=== PATIENT | male | born 1930 | race Caucasian/White ===

== ENCOUNTER 2017-02-03 13:56 | Inpatient (IN) | payer OTHER, MEDICARE ==
[~2017-02-03] VITALS: Ht 172.7 cm; Wt 78.9 kg
[~2017-02-03 13:56] MED LIST: ASPI81 PO; CALC.25 PO; LANSO30 PO; METO25 PO; NEOSTIGMINE 3 MG/3 ML SYR IV ONE; ONDANSETRON HCL 4 MG/2 ML VIAL IV PUSH ONE; PHEN100 PO; PHENYLEPH/NS 1000 MCG/10 ML SYR IV ONE; PROPOFOL 200 MG/20 ML AMP IV ONE; SODIUM CHLOR 0.9% 1000 ML INJ 1,000 ML IV ONE; SODIUM CHLOR 0.9% 250 ML INJ 500 ML IV ONE; SODIUM CHLORID 0.9% 500 ML INJ 500 ML IV ONE; [UNRECOGNIZED DRUG - CODE] PO
[2017-02-03 14:06] VITALS: BP 120/83; PULSE 77; RESP 20; TEMP 97.6; O2SAT 100
[2017-02-03] MEDS ORDERED: SODIUM CHLOR 0.9% 1000 ML INJ 1,000 ML IV SCH (14:12)
[2017-02-03 14:15] VITALS: O2SAT 96
[2017-02-03] MEDS ORDERED: MORPHINE SULFATE 4 MG/ML INJ IV PUSH ONE ×4 (14:15→23:12)
[2017-02-03] MEDS ORDERED: ONDANSETRON HCL 4 MG/2 ML VIAL IV PUSH ONE ×2 (14:15→15:00)
[2017-02-03 14:16] VITALS: BP 120/83; PULSE 88; RESP 18; TEMP 97.9; O2SAT 97
[2017-02-03] MEDS ORDERED: SODI650T PO (14:19)
[2017-02-03] MEDS ORDERED: CALC1CAP PO (14:19)
[2017-02-03] MEDS ORDERED: FURO40TA PO (14:19)
[2017-02-03] MEDS ORDERED: AMLO10TA2 PO (14:19)
[2017-02-03] MEDS ORDERED: OMEP20TA PO (14:19)
[2017-02-03] MEDS ORDERED: CALC0.5C6 PO (14:19)
--- NOTE | 2017-02-03 14:20 | PD ---
Data Data Last Documented VS Vital Signs Date Time Temp Pulse Resp B/P Pulse Ox O2 Delivery O2 Flow Rate FiO2 02/03/17 18:17 96 Nasal Cannula 3.00 02/03/17 15:02 18 02/03/17 14:16 97.9 88 120/83 Orders Complete Blood Count With Diff (02/03/17 14:09) Comprehensive Metabolic Panel (02/03/17 14:09) Prothrombin Time / Inr (Pt) (02/03/17 14:09) Act Partial Throm Time (Ptt) (02/03/17 14:09) Lipase (02/03/17 14:09) Thyroid Stimulating Hormone (02/03/17 14:09) Iv Access Insert/Monitor (02/03/17 14:09) Ecg Monitoring (02/03/17 14:09) Oximetry (02/03/17 14:09) Morphine Inj (Morphine Inj) (02/03/17 14:15) Ondansetron Inj (Zofran Inj) (02/03/17 14:15) Sodium Chlor 0.9% 1000 Ml Inj (Ns 1000 M (02/03/17 14:12) Abdomen, Kub Only (02/03/17 ) Morphine Inj (Morphine Inj) (02/03/17 14:45) Ondansetron Inj (Zofran Inj) (02/03/17 15:00) Lactic Acid (02/03/17 15:08) Ct Abd/Pel W/O Iv Contrast (02/03/17 ) Resp Blood Gas Venous (02/03/17 ) Hydromorphone Pf Inj (Dilaudid Pf Inj) (02/03/17 16:00) Blood Gas Venous (Vbg) (02/03/17 15:47) Insert Ng Tube (02/03/17 16:59) Propofol 200 Mg/20 Ml Inj (Diprivan 200 (02/03/17 17:45) Clindamycin Inj (Cleocin Inj) (02/03/17 18:15) Consult General Surgery (02/03/17 ) Admit Order (Ed Use Only) (02/03/17 ) Consult Nephrology (02/03/17 ) Labs Laboratory Tests Test 02/03/17 02/03/17 02/03/17 14:22 15:47 15:50 White Blood Count 5.5 TH/MM3 Red Blood Count 3.08 MIL/MM3 Hemoglobin 9.6 GM/DL Hematocrit 29.5 % Mean Corpuscular Volume 95.5 FL Mean Corpuscular Hemoglobin 31.1 PG Mean Corpuscular Hemoglobin 32.6 % Concent Red Cell Distribution Width 14.8 % Platelet Count 115 TH/MM3 Mean Platelet Volume 9.6 FL Neutrophils (%) (Auto) 91.4 % Lymphocytes (%) (Auto) 5.1 % Monocytes (%) (Auto) 2.7 % Eosinophils (%) (Auto) 0.3 % Basophils (%) (Auto) 0.5 % Neutrophils # (Auto) 5.1 TH/MM3 Lymphocytes # (Auto) 0.3 TH/MM3 Monocytes # (Auto) 0.2 TH/MM3 Eosinophils # (Auto) 0.0 TH/MM3 Basophils # (Auto) 0.0 TH/MM3 CBC Comment DIFF FINAL Differential Comment Prothrombin Time 11.3 SEC Prothromb Time International 1.0 RATIO Ratio Activated Partial 27.2 SEC Thromboplast Time Sodium Level 147 MEQ/L Potassium Level 3.9 MEQ/L Chloride Level 119 MEQ/L Carbon Dioxide Level 10.2 MEQ/L Anion Gap 18 MEQ/L Blood Urea Nitrogen 85 MG/DL Creatinine 7.51 MG/DL Estimat Glomerular Filtration 7 ML/MIN Rate Random Glucose 138 MG/DL Calcium Level 8.1 MG/DL Total Bilirubin 0.3 MG/DL Aspartate Amino Transf 22 U/L (AST/SGOT) Alanine Aminotransferase 21 U/L (ALT/SGPT) Alkaline Phosphatase 60 U/L Total Protein 7.0 GM/DL Albumin 3.5 GM/DL Lipase 319 U/L Thyroid Stimulating Hormone 2.250 uIU/ML 3rd Gen Blood Gas Puncture Site IV Blood Gas Patient Temperature 98.6 Venous Blood pH 7.17 Venous Blood Partial Pressure 29 mmHg CO2 Venous Blood Partial Pressure 40 mmHg O2 Venous Blood HCO3 10 mmol/L Venous Blood Oxygen Saturation 70 % Venous Blood Oxygen Content 8.9 Vol % Venous Blood Base Excess -16.9 mmol/L Oxygen Delivery Device ROOM AIR Blood Gas Inspired Oxygen 21 % Lactic Acid Level 1.5 mmol/L [facility] Supervised Visit with VU: Yes Narrative Course Patient seen and examined by me, I attempted to reduce his left-sided abdominal hernia without success. The patient's hernia is fairly tender but has no overlying skin changes. Patient to CAT scan does have signs of obstruction and does need to have the hernia reduced. I discussed the patient with Dr. Sprague who would like to have the patient sedated emergency department, Dr. Santamaria is available and has sedated the patient with Dr. Sprague trying to reduce and the patient has had unsuccessful reduction. The patient is fairly complicated for surgery given his chronic kidney disease, uremia, acidosis but after discussion with him that he may become quite ill if he does not do the surgery he has agreed to proceed with the surgery. Discussed with the patient that his DNR status will likely have to be listed for the procedure and he would agree to this as well. All this was conveyed to Dr. Sprague. Patient was also discussed with Dr. Zurita likely need an ICU bed after surgery. Patient hemodynamically stable is still having significant pain after the sedation was given additional morphine. He does not want to have any workup for his chronic kidney disease and what appears to be a mass on the left kidney. His right kidney on a CAT scan is severely atrophic: Last 24 hours Impressions Abdomen/Pelvis CT 02/03/17 0000 Signed Impressions: Service Date/Time: Wednesday, February 03, 2017 16:21 - CONCLUSION: 1. Left anterior abdominal wall hernia with findings concerning for strangulated proximal loop of jejunum. No evidence for bowel infarction, perforation, or abscess. 2. Large recannulated periumbilical vein with extensive network of enlarged veins abutting the abdominal wall likely extending to the splenic or left renal vein - notable for surgical planning. This is consistent with some degree of portal hypertension although there is not significant hepatic volume loss to suggest cirrhosis. 3. Innumerable bilateral renal cysts. Multiple have enlarged slightly since 2013 with one cystic lesion in the right kidney now more hyperdense like reflecting a hemorrhagic cyst although density is indeterminate at this time. A large left renal mass previously biopsied in 2013 has also enlarged in the interval, as above. Correlation with pathology results is recommended. 4. Serpiginous left lower lobe opacity suggesting pulmonary AVM. This can be confirmed with contrast-enhanced examination. 5. Moderately distended bladder may reflect some degree of bladder outlet obstruction. This may be confirmed with a postvoid residual exam. 6. 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 7. Multiple additional ancillary findings, as above. This report was called to Mr. Quirino, PARoberto Toledo MD Abdomen X-Ray 02/03/17 0000 Signed Impressions: Service Date/Time: Friday, February 03, 2017 14:34 - CONCLUSION: 1. Stool scattered throughout the colon. 2. Minimal small bowel dilatation in a nonspecific fashion. Blayne Roberson MD FACR Critical Care Narrative Aggregate critical care time was 31 minutes. Time to perform other separately billable procedures was not included in the critical care time. My time did not include minutes spent treating any other patients simultaneously or on activities that did not directly contribute to the patient's treatment. The services I provided to this patient were to treat and/or prevent clinically significant deterioration that could result in: , disability, organ failure. I provided critical care services requiring my management, as noted below: Chart data review, documentation time, medication orders and management, vital sign assessments/reviewing monitor data, ordering and reviewing lab tests, ordering and interpreting/reviewing x-rays and diagnostic studies, care of the patient and discussion of the patient with the admitting physicians and consultants as well as discussing at length the clinical impression with the family and the patient.. Diagnosis Primary Impression: Incarcerated hernia of abdominal cavity Additional Impressions: Metabolic acidemia Renal failure Qualified Code: N18.5 - Stage 5 chronic kidney disease not on chronic dialysis Incarcerated incisional hernia Acidosis ESRD (end stage renal disease) Admitting Information Admitting Physician Requests: Admit Condition: Serious Alfredito rAias MD Feb 03, 2017 14:20
[2017-02-03 14:34] LABS: AUTOMATED NEUTROPHIL # 5.1 TH/MM3 (1.8-7.7); BASOPHIL % 0.5 % (0.0-2.0); EOSINOPHIL % 0.3 % (0.0-4.0); HEMATOCRIT 29.5 % (39.0-51.0); HEMO FLAGS DIFF FINAL; LYMPH % 5.1 % (9.0-44.0); LYMPHOCYTE # 0.3 TH/MM3 (1.0-4.8); MEAN CELL VOLUME 95.5 FL (80.0-100.0); MEAN CORPUSCULAR HEMOGLOBIN 31.1 PG (27.0-34.0); MEAN CORPUSCULAR HGB CONC 32.6 % (32.0-36.0); MONO % 2.7 % (0.0-8.0); NEUT % 91.4 % (16.0-70.0); PLATELET COUNT 115 TH/MM3 (150-450); RED BLOOD COUNT 3.08 MIL/MM3 (4.50-5.90); RED CELL DISTRIBUTION WIDTH 14.8 % (11.6-17.2); WHITE BLOOD COUNT 5.5 TH/MM3 (4.0-11.0)
[2017-02-03 14:45] LABS: APTT (PATIENT) 27.2 SEC (24.3-30.1); PROTHROMBIN TIME - PATIENT 11.3 SEC (9.8-11.6)
[2017-02-03 14:57] LABS: ALT (GPT) 21 U/L (12-78); ANION GAP 18 MEQ/L (5-15); AST (GOT) 22 U/L (15-37); BICARBONATE 10.2 MEQ/L (21.0-32.0); BLOOD UREA NITROGEN 85 MG/DL (7-18); CHLORIDE 119 MEQ/L (98-107); GLOMERULAR FILTRATION RATE 7 ML/MIN (>89); POTASSIUM 3.9 MEQ/L (3.5-5.1); SODIUM (NA) 147 MEQ/L (136-145)
[2017-02-03 15:06] LABS: ALKALINE PHOSPHATASE 60 U/L (45-117); TOTAL BILIRUBIN ADULT 0.3 MG/DL (0.2-1.0)
--- NOTE | 2017-02-03 15:28 | RADRPT ---
EXAM DATE/TIME: 02/03/2017 14:34 [facility] COMPARISON: No previous studies available for comparison. INDICATIONS : Abdominal pain MEDICAL HISTORY : Gastroesophageal reflux disease. Hypertension Myocardial infarction. Brennan ry artery disease. Emphysema. Renal failure. SURGICAL HISTORY : Cholecystectomy. CABG. Cardiac cath. ENCOUNTER: Initial ACUITY: 1 day PAIN SCORE: 8/10 LOCATION: Bilateral lower abdomen. FINDINGS: Coarse interstitial changes are present in both lungs. Scattered stool is seen througho ut the colon. There is minimal proximal small bowel dilatation with small bowel dilated to 4 cm. There is no free air. CONCLUSION: 1. Stool scattered throughout the colon. 2. Minimal small bowel dilatation in a nonspecific fashion. Blayne Roberson MD FACR on February 03, 2017 at 15:16 Board Certified Radiologist. This report was verified electronically.
--- NOTE | 2017-02-03 15:33 | PD ---
HPI Chief Complaint: Abdominal Pain Time Seen by Provider: 15:30 Travel History International Travel<30 days: No Contact w/Intl Traveler<30days: No Traveled to known affect area: No History of Present Illness HPI 86-year-old male that presents to the ED for evaluation of severe abdominal pain. Per patient has had this since this morning. Per patient he was sitting when the pain started. Patient has a complicated history including apparently what appears to be kidney failure which appears to be chronic and follows up regularly with Dr. Victoria. Apparently he is supposed to have dialysis but he's been refusing for about 4 years now. He also has a history of a hernia on the left lower quadrant. Per patient most of the pain appears to be in this area. Patient is very sensitive to touch. Per patient pain severe 8 out of 10. He has no bowel movement issues. Has not had a bowel movement today. Has not vomited or had any nausea. Patient was brought here by ambulance. Patient has any fevers chills or sweats. No recent surgery to the abdomen. Allergies to penicillin. No chest pain or shortness of breath. Patient denies taking any blood thinners. PFSH Past Medical History Arthritis: No Asthma: No Autoimmune Disease: No Cancer: No Cardiac Catheterization: Yes Cardiovascular Problems: Yes (CAD S/P SD) High Cholesterol: No (UNKNOWN) Chest Pain: No Congestive Heart Failure: No COPD: No Cerebrovascular Accident: No Coronary Artery Disease: Yes Diabetes: No Diminished Hearing: No Endocrine: No GERD: Yes Genitourinary: Yes Hepatitis: No Hiatal Hernia: No Immune Disorder: No Kidney Stones: No Musculoskeletal: No Neurologic: Yes (SEIZURES) Psychiatric: No Reproductive: No Respiratory: Yes Migraines: No Myocardial Infarction: Yes Renal Failure: Yes (LEFT KIDNEY) Seizures: No Sleep Apnea: No Thyroid Disease: No Ulcer: No Tetanus Vaccination: Unknown Influenza Vaccination: Yes ?: Not Past Surgical History Abdominal Surgery: Yes (CHOLECYSTECOMTY, HERNIA) AICD: No Cardiac Surgery: Yes (CABG in 2003) Coronary Artery Bypass Graft: Yes (2003) Ear Surgery: No Endocrine Surgery: No Eye Surgery: No Genitourinary Surgery: Yes (LEFT KIDNEY) Gynecologic Surgery: No Joint Replacement: No Oral Surgery: Yes (TONSILLECTOMY) Pacemaker: No Thoracic Surgery: No Other Surgery: Yes (left kidney surgery..kidney inactive since then..over 50 years ago) Social History Alcohol Use: No Tobacco Use: No Substance Use: No Allergies-Medications (Allergen,Severity, Reaction): Coded Allergies: Penicillin (Verified Allergy, Severe, RASH, 10/28/12) Reported Meds & Prescriptions Reported Meds & Active Scripts Active Reported Calcitriol 0.5 Mcg Cap 0.5 Mcg PO DAILY Omeprazole 20 Mg Tab 20 Mg PO DAILY Amlodipine (Amlodipine Besylate) 10 Mg Tab 10 Mg PO DAILY Furosemide 40 Mg Tab 40 Mg PO DAILY Sodium Bicarbonate 650 Mg Tab 650 Mg PO TIDPC Calcium Acetate (Phosphate Binder) 667 Mg Cap 667 Mg PO TID Review of Systems Except as stated in HPI: all other systems reviewed are Neg Physical Exam Narrative GENERAL: SKIN: Warm and dry. HEAD: Atraumatic. Normocephalic. EYES: Pupils equal and round. No scleral icterus. No injection or drainage. ENT: No nasal bleeding or discharge. Mucous membranes pink and moist. Tongue is midline. No uvula deviation. NECK: Trachea midline. No JVD. CARDIOVASCULAR: Regular rate and rhythm. No murmurs, S3, S4. RESPIRATORY: No accessory muscle use. Clear to auscultation. Breath sounds equal bilaterally. GASTROINTESTINAL: Abdomen soft, very tender to palpation the left lower quadrant of her patient has what appears to be a hernia that is not reducible, very sensitive to touch here, nondistended. Hepatic and splenic margins not palpable. MUSCULOSKELETAL: Extremities without clubbing, cyanosis, or edema. No obvious deformities. Full range of motion of the upper and lower extremities bilaterally. 2+ pulses bilaterally. NEUROLOGICAL: Awake and alert. No obvious cranial nerve deficits. Motor grossly within normal limits. Five out of 5 muscle strength in the arms and legs. Normal speech. PSYCHIATRIC: Appropriate mood and affect; insight and judgment normal. Data Data Last Documented VS Vital Signs Date Time Temp Pulse Resp B/P Pulse Ox O2 Delivery O2 Flow Rate FiO2 02/03/17 18:17 96 Nasal Cannula 3.00 02/03/17 15:02 18 02/03/17 14:16 97.9 88 120/83 Orders Complete Blood Count With Diff (02/03/17 14:09) Comprehensive Metabolic Panel (02/03/17 14:09) Prothrombin Time / Inr (Pt) (02/03/17 14:09) Act Partial Throm Time (Ptt) (02/03/17 14:09) Lipase (02/03/17 14:09) Urinalysis - C+S If Indicated (02/03/17 14:09) Thyroid Stimulating Hormone (02/03/17 14:09) Iv Access Insert/Monitor (02/03/17 14:09) Ecg Monitoring (02/03/17 14:09) Oximetry (02/03/17 14:09) Morphine Inj (Morphine Inj) (02/03/17 14:15) Ondansetron Inj (Zofran Inj) (02/03/17 14:15) Sodium Chlor 0.9% 1000 Ml Inj (Ns 1000 M (02/03/17 14:12) Abdomen, Kub Only (02/03/17 ) Morphine Inj (Morphine Inj) (02/03/17 14:45) Ondansetron Inj (Zofran Inj) (02/03/17 15:00) Lactic Acid (02/03/17 15:08) Ct Abd/Pel W/O Iv Contrast (02/03/17 ) Resp Blood Gas Venous (02/03/17 ) Hydromorphone Pf Inj (Dilaudid Pf Inj) (02/03/17 16:00) Blood Gas Venous (Vbg) (02/03/17 15:47) Insert Ng Tube (02/03/17 16:59) Propofol 200 Mg/20 Ml Inj (Diprivan 200 (02/03/17 17:45) Clindamycin Inj (Cleocin Inj) (02/03/17 18:15) Consult General Surgery (02/03/17 ) Admit Order (Ed Use Only) (02/03/17 ) Labs Laboratory Tests Test 02/03/17 02/03/17 02/03/17 14:22 15:47 15:50 White Blood Count 5.5 TH/MM3 Red Blood Count 3.08 MIL/MM3 Hemoglobin 9.6 GM/DL Hematocrit 29.5 % Mean Corpuscular Volume 95.5 FL Mean Corpuscular Hemoglobin 31.1 PG Mean Corpuscular Hemoglobin 32.6 % Concent Red Cell Distribution Width 14.8 % Platelet Count 115 TH/MM3 Mean Platelet Volume 9.6 FL Neutrophils (%) (Auto) 91.4 % Lymphocytes (%) (Auto) 5.1 % Monocytes (%) (Auto) 2.7 % Eosinophils (%) (Auto) 0.3 % Basophils (%) (Auto) 0.5 % Neutrophils # (Auto) 5.1 TH/MM3 Lymphocytes # (Auto) 0.3 TH/MM3 Monocytes # (Auto) 0.2 TH/MM3 Eosinophils # (Auto) 0.0 TH/MM3 Basophils # (Auto) 0.0 TH/MM3 CBC Comment DIFF FINAL Differential Comment Prothrombin Time 11.3 SEC Prothromb Time International 1.0 RATIO Ratio Activated Partial 27.2 SEC Thromboplast Time Sodium Level 147 MEQ/L Potassium Level 3.9 MEQ/L Chloride Level 119 MEQ/L Carbon Dioxide Level 10.2 MEQ/L Anion Gap 18 MEQ/L Blood Urea Nitrogen 85 MG/DL Creatinine 7.51 MG/DL Estimat Glomerular Filtration 7 ML/MIN Rate Random Glucose 138 MG/DL Calcium Level 8.1 MG/DL Total Bilirubin 0.3 MG/DL Aspartate Amino Transf 22 U/L (AST/SGOT) Alanine Aminotransferase 21 U/L (ALT/SGPT) Alkaline Phosphatase 60 U/L Total Protein 7.0 GM/DL Albumin 3.5 GM/DL Lipase 319 U/L Thyroid Stimulating Hormone 2.250 uIU/ML 3rd Gen Blood Gas Puncture Site IV Blood Gas Patient Temperature 98.6 Venous Blood pH 7.17 Venous Blood Partial Pressure 29 mmHg CO2 Venous Blood Partial Pressure 40 mmHg O2 Venous Blood HCO3 10 mmol/L Venous Blood Oxygen Saturation 70 % Venous Blood Oxygen Content 8.9 Vol % Venous Blood Base Excess -16.9 mmol/L Oxygen Delivery Device ROOM AIR Blood Gas Inspired Oxygen 21 % Lactic Acid Level 1.5 mmol/L [facility] Medical Decision Making Medical Screen Exam Complete: Yes Emergency Medical Condition: Yes Medical Record Reviewed: Yes Interpretation(s) CBC & BMP Diagram 02/03/17 14:22 Last Impressions Abdomen/Pelvis CT 02/03/17 0000 Signed Impressions: Service Date/Time: Friday, February 03, 2017 16:21 - CONCLUSION: 1. Left anterior abdominal wall hernia with findings concerning for strangulated proximal loop of jejunum. No evidence for bowel infarction, perforation, or abscess. 2. Large recannulated periumbilical vein with extensive network of enlarged veins abutting the abdominal wall likely extending to the splenic or left renal vein - notable for surgical planning. This is consistent with some degree of portal hypertension although there is not significant hepatic volume loss to suggest cirrhosis. 3. Innumerable bilateral renal cysts. Multiple have enlarged slightly since 2013 with one cystic lesion in the right kidney now more hyperdense like reflecting a hemorrhagic cyst although density is indeterminate at this time. A large left renal mass previously biopsied in 2013 has also enlarged in the interval, as above. Correlation with pathology results is recommended. 4. Serpiginous left lower lobe opacity suggesting pulmonary AVM. This can be confirmed with contrast-enhanced examination. 5. Moderately distended bladder may reflect some degree of bladder outlet obstruction. This may be confirmed with a postvoid residual exam. 6. 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 7. Multiple additional ancillary findings, as above. This report was called to Mr. Quirino PA-C. Clarence Toledo MD Abdomen X-Ray 02/03/17 0000 Signed Impressions: Service Date/Time: Wednesday, February 03, 2017 14:34 - CONCLUSION: 1. Stool scattered throughout the colon. 2. Minimal small bowel dilatation in a nonspecific fashion. Blayne Roberson MD FACR LFTs and lipase within normal limits. Lactic acid within normal limits. Differential Diagnosis Abdominal pain versus obstruction versus strangulated hernia versus hernia versus diverticulitis versus kidney failure versus sepsis Narrative Course 86-year-old male to presents to the ED for ablation of left lower quadrant abdominal pain. Patient was properly examined and was found to have signs and symptoms concerning for strep and a hernia versus obstruction. Labs and imaging ordered. Pain medially had my attending evaluated the patient with me and we both attempted to reduce the hernia but were unsuccessful. Patient is very tender in this area and there is definite concern for strangulation as well as obstruction. Patient was given IV pain medication as well as antiemetics. Labs and imaging showed what appears to be angulated hernia and severe renal disease. Patient is also acidotic likely from the anemia. Dr. Sprague was contacted and came to the bedside and after explained procedure to the patient as well as to the family and they agreed to it using conscious sedation Dr. Sprague himself attempted for about 5 minutes to do a manual reduction of the hernia with no success. Please refer to my attending's note for this procedure. Therefore the plan change to having surgery. I spoke with Dr. victoria about the patient as this is the patient's statistical financial analyst and apparently patient has declined multiple times to have dialysis or any surgeries to his masses to his kidneys. He is awake the patient will be admitted to the equipment superintendent addiction specialist, evaluated the patient here. My attending and I personally spoke with Dr. Zurita for equipment superintendent who agrees to admission. Patient was admitted to the equipment superintendent group. Family and patient were aware of all findings and agreed for us to proceed with plan. Procedures EKG Prior to Arrival: No Diagnosis Primary Impression: Incarcerated hernia of abdominal cavity Additional Impressions: Renal failure Qualified Code: N18.5 - Stage 5 chronic kidney disease not on chronic dialysis Acidosis Admitting Information Admitting Physician Requests: Admit Juwan Win Feb 03, 2017 15:33
[2017-02-03 16:00] LABS: BLOOD GAS VENOUS BASE EXCESS -16.9 mmol/L (-2-2); BLOOD GAS VENOUS HCO3 10 mmol/L (22-26); BLOOD GAS VENOUS O2 CONTENT 8.9 Vol % (9.0-17.0); BLOOD GAS VENOUS O2 HGB SAT 70 % (70-76); BLOOD GAS VENOUS PCO2 29 mmHg (44-48); BLOOD GAS VENOUS PO2 40 mmHg (35-40); BLOOD GAS VENOUS pH 7.17 (7.360-7.400); TEMP CORR TO 98.6
[2017-02-03] MEDS ORDERED: HYDROmorphone HCL PF 1 MG/ML VIAL IV PUSH ONE (16:00)
[2017-02-03 16:02] LABS: CRITICAL VALUE YES
[2017-02-03 16:03] LABS: DRAW SITE IV; FIO2 21 %; OXYGEN DEVICE ROOM AIR; STAT YES
--- NOTE | 2017-02-03 17:34 | RADRPT ---
EXAM DATE/TIME: 02/03/2017 16:21 [place] COMPARISON: No previous studies available for comparison. INDICATIONS : Evaluate for obstruction. ORAL CONTRAST: No oral contrast ingested. RADIATION DOSE: 9.96 CTDIvol (mGy) MEDICAL HISTORY : Hypertension. SURGICAL HISTORY : Cholecystectomy. Kidney sx, Hernia repair. ENCOUNTER: Initial ACUITY: 1 day PAIN SCALE: 5/10 LOCATION: Bilateral lower quadrant TECHNIQUE: Volumetric scanning of the abdomen and pelvis was performed. Using automated exposure control and ad justment of the mA and/or kV according to patient size, radiation dose was kept as low as reasonably achievable to obtain optimal diagnostic quality images. FINDINGS: LOWER LUNGS: Visualized lung bases demonstrate moderate to severe paraseptal emphysema. There is a small right ple ural effusion with associated pleural calcifications. Serpiginous stable opacities in the left lung b ase may reflect pulmonary AVM as they do not appear to connect to bronchi. LIVER: Grossly unremarkable demonstrating homogeneous density without evidence for significant volume loss. However, there is a recannulized periumbilical vein with eventual anastomosis to the splenic and mike l veins. Gallbladder is surgically absent. SPLEEN: Grossly unremarkable. PANCREAS: Within normal limits. KIDNEYS: Redemonstration of numerous bilateral renal cysts. On the right there is a single indeterminate hypod ense cystic lesion with increased density in comparison to prior exam. This cyst measures 2.7 x 2.3 c m and is unchanged in size. Several cysts in the right kidney have enlarged slightly in the interval but remain normal fluid in density. For example a cyst in the superior pole right kidney now measures 5.9 x 5.0 cm in comparison to 3.5 x 3.5 centers on prior exam. Previously demonstrated large heterogeneously dense left renal mass containing coarse calcificat ion has enlarged in the interval now measuring 10.0 x 9.3 cm in comparison to 7.8 x 8.7 cm. This was previously biopsied in 2013. Multiple additional simple cysts appear to have slightly enlarged in the interval. There is also a left perirenal collection containing coarse calcification which appears la rgely unchanged. Left kidney is nearly entirely replaced and otherwise unchanged. ADRENAL GLANDS: Within normal limits. VASCULAR: Extensive vascular calcifications. BOWEL/MESENTERY: There is a left anterior abdominal wall hernia which contains a loop of small bowel. The small bowel loop is dilated and there is dilatation of the more proximal bowel loops. No significant inflammatory stranding is noted in the hernia sac. More distally, the bowel loops are normal in caliber. The dila ace proximal bowel loops measure up to 2.9 cm. There is no evidence for pneumatosis or free air. No d rainable fluid collections. Mild to moderate diverticulosis in the descending colon. ABDOMINAL WALL: Additional small fat containing anterior bowel wall hernias in the supraglottic disc region. These me asure up to 1.3 cm. RETROPERITONEUM: There is no lymphadenopathy. BLADDER: Bladder is distended but otherwise grossly unremarkable. REPRODUCTIVE: Prostate is nonspecifically enlarged and contains coarse calcifications. INGUINAL: Bilateral fat containing inguinal hernias. MUSCULOSKELETAL: 4.8 x 2.7 cm lipoma in the right gluteal muscles. No abnormal lytic or blastic bony lesions. CONCLUSION: 1. Left anterior abdominal wall hernia with findings concerning for strangulated proximal loop of jej unum. No evidence for bowel infarction, perforation, or abscess. 2. Large recannulated periumbilical vein with extensive network of enlarged veins abutting the abdomi nal wall likely extending to the splenic or left renal vein - notable for surgical planning. This is consistent with some degree of portal hypertension although there is not significant hepatic volume l oss to suggest cirrhosis. 3. Innumerable bilateral renal cysts. Multiple have enlarged slightly since 2013 with one cystic lesi on in the right kidney now more hyperdense like reflecting a hemorrhagic cyst although density is ind eterminate at this time. A large left renal mass previously biopsied in 2013 has also enlarged in the interval, as above. Correlation with pathology results is recommended. 4. Serpiginous left lower lobe opacity suggesting pulmonary AVM. This can be confirmed with contrast- enhanced examination. 5. Moderately distended bladder may reflect some degree of bladder outlet obstruction. This may be co nfirmed with a postvoid residual exam. 6. Moderate to severe paraseptal emphysema with small right pleural effusion and pleural based calcif ications in the right hemithorax. 7. Multiple additional ancillary findings, as above. This report was called to NO Bo MD on February 03, 2017 at 17:01 Board Certified Radiologist. This report was verified electronically.
[2017-02-03] MEDS ORDERED: PROPOFOL 200 MG/20 ML AMP IV ONE (17:45)
[2017-02-03] MEDS ORDERED: CLINDAMYCIN PHOS 600 MG/4 ML VIAL IM ONE (18:15)
[2017-02-03 18:17] VITALS: O2SAT 96
--- NOTE | 2017-02-03 18:40 | PD ---
Physical Exam Date Seen by Provider: Feb 03, 2017 Time Seen by Provider: 18:37 Narrative The patient is a 86-year-old male who had an incarcerated hernia with known end- stage renal disease is not on hemodialysis. Dr. Sprague requested that the patient have conscious sedation for possible attempt to reduce the abdominal incarcerated/strangulated hernia. The patient was initially evaluated by Dr. Arias, please refer to the initial history, physical, diagnostic evaluation, and treatment modality plan. Data Data Last Documented VS Vital Signs Date Time Temp Pulse Resp B/P Pulse Ox O2 Delivery O2 Flow Rate FiO2 02/03/17 18:17 96 Nasal Cannula 3.00 02/03/17 15:02 18 02/03/17 14:16 97.9 88 120/83 Orders Complete Blood Count With Diff (02/03/17 14:09) Comprehensive Metabolic Panel (02/03/17 14:09) Prothrombin Time / Inr (Pt) (02/03/17 14:09) Act Partial Throm Time (Ptt) (02/03/17 14:09) Lipase (02/03/17 14:09) Urinalysis - C+S If Indicated (02/03/17 14:09) Thyroid Stimulating Hormone (02/03/17 14:09) Iv Access Insert/Monitor (02/03/17 14:09) Ecg Monitoring (02/03/17 14:09) Oximetry (02/03/17 14:09) Morphine Inj (Morphine Inj) (02/03/17 14:15) Ondansetron Inj (Zofran Inj) (02/03/17 14:15) Sodium Chlor 0.9% 1000 Ml Inj (Ns 1000 M (02/03/17 14:12) Abdomen, Kub Only (02/03/17 ) Morphine Inj (Morphine Inj) (02/03/17 14:45) Ondansetron Inj (Zofran Inj) (02/03/17 15:00) Lactic Acid (02/03/17 15:08) Ct Abd/Pel W/O Iv Contrast (02/03/17 ) Resp Blood Gas Venous (02/03/17 ) Hydromorphone Pf Inj (Dilaudid Pf Inj) (02/03/17 16:00) Blood Gas Venous (Vbg) (02/03/17 15:47) Insert Ng Tube (02/03/17 16:59) Propofol 200 Mg/20 Ml Inj (Diprivan 200 (02/03/17 17:45) Clindamycin Inj (Cleocin Inj) (02/03/17 18:15) Consult General Surgery (02/03/17 ) Admit Order (Ed Use Only) (02/03/17 ) Consult Nephrology (02/03/17 ) Labs Laboratory Tests Test 02/03/17 02/03/17 02/03/17 14:22 15:47 15:50 White Blood Count 5.5 TH/MM3 Red Blood Count 3.08 MIL/MM3 Hemoglobin 9.6 GM/DL Hematocrit 29.5 % Mean Corpuscular Volume 95.5 FL Mean Corpuscular Hemoglobin 31.1 PG Mean Corpuscular Hemoglobin 32.6 % Concent Red Cell Distribution Width 14.8 % Platelet Count 115 TH/MM3 Mean Platelet Volume 9.6 FL Neutrophils (%) (Auto) 91.4 % Lymphocytes (%) (Auto) 5.1 % Monocytes (%) (Auto) 2.7 % Eosinophils (%) (Auto) 0.3 % Basophils (%) (Auto) 0.5 % Neutrophils # (Auto) 5.1 TH/MM3 Lymphocytes # (Auto) 0.3 TH/MM3 Monocytes # (Auto) 0.2 TH/MM3 Eosinophils # (Auto) 0.0 TH/MM3 Basophils # (Auto) 0.0 TH/MM3 CBC Comment DIFF FINAL Differential Comment Prothrombin Time 11.3 SEC Prothromb Time International 1.0 RATIO Ratio Activated Partial 27.2 SEC Thromboplast Time Sodium Level 147 MEQ/L Potassium Level 3.9 MEQ/L Chloride Level 119 MEQ/L Carbon Dioxide Level 10.2 MEQ/L Anion Gap 18 MEQ/L Blood Urea Nitrogen 85 MG/DL Creatinine 7.51 MG/DL Estimat Glomerular Filtration 7 ML/MIN Rate Random Glucose 138 MG/DL Calcium Level 8.1 MG/DL Total Bilirubin 0.3 MG/DL Aspartate Amino Transf 22 U/L (AST/SGOT) Alanine Aminotransferase 21 U/L (ALT/SGPT) Alkaline Phosphatase 60 U/L Total Protein 7.0 GM/DL Albumin 3.5 GM/DL Lipase 319 U/L Thyroid Stimulating Hormone 2.250 uIU/ML 3rd Gen Blood Gas Puncture Site IV Blood Gas Patient Temperature 98.6 Venous Blood pH 7.17 Venous Blood Partial Pressure 29 mmHg CO2 Venous Blood Partial Pressure 40 mmHg O2 Venous Blood HCO3 10 mmol/L Venous Blood Oxygen Saturation 70 % Venous Blood Oxygen Content 8.9 Vol % Venous Blood Base Excess -16.9 mmol/L Oxygen Delivery Device ROOM AIR Blood Gas Inspired Oxygen 21 % Lactic Acid Level 1.5 mmol/L [facility] Medical Record Reviewed: Yes Supervised Visit with VU: Yes Interpretation(s) Laboratory Tests Test 02/03/17 02/03/17 02/03/17 14:22 15:47 15:50 White Blood Count 5.5 TH/MM3 Red Blood Count 3.08 MIL/MM3 Hemoglobin 9.6 GM/DL Hematocrit 29.5 % Mean Corpuscular Volume 95.5 FL Mean Corpuscular Hemoglobin 31.1 PG Mean Corpuscular Hemoglobin 32.6 % Concent Red Cell Distribution Width 14.8 % Platelet Count 115 TH/MM3 Mean Platelet Volume 9.6 FL Neutrophils (%) (Auto) 91.4 % Lymphocytes (%) (Auto) 5.1 % Monocytes (%) (Auto) 2.7 % Eosinophils (%) (Auto) 0.3 % Basophils (%) (Auto) 0.5 % Neutrophils # (Auto) 5.1 TH/MM3 Lymphocytes # (Auto) 0.3 TH/MM3 Monocytes # (Auto) 0.2 TH/MM3 Eosinophils # (Auto) 0.0 TH/MM3 Basophils # (Auto) 0.0 TH/MM3 CBC Comment DIFF FINAL Differential Comment Prothrombin Time 11.3 SEC Prothromb Time International 1.0 RATIO Ratio Activated Partial 27.2 SEC Thromboplast Time Sodium Level 147 MEQ/L Potassium Level 3.9 MEQ/L Chloride Level 119 MEQ/L Carbon Dioxide Level 10.2 MEQ/L Anion Gap 18 MEQ/L Blood Urea Nitrogen 85 MG/DL Creatinine 7.51 MG/DL Estimat Glomerular Filtration 7 ML/MIN Rate Random Glucose 138 MG/DL Calcium Level 8.1 MG/DL Total Bilirubin 0.3 MG/DL Aspartate Amino Transf 22 U/L (AST/SGOT) Alanine Aminotransferase 21 U/L (ALT/SGPT) Alkaline Phosphatase 60 U/L Total Protein 7.0 GM/DL Albumin 3.5 GM/DL Lipase 319 U/L Thyroid Stimulating Hormone 2.250 uIU/ML 3rd Gen Blood Gas Puncture Site IV Blood Gas Patient Temperature 98.6 Venous Blood pH 7.17 Venous Blood Partial Pressure 29 mmHg CO2 Venous Blood Partial Pressure 40 mmHg O2 Venous Blood HCO3 10 mmol/L Venous Blood Oxygen Saturation 70 % Venous Blood Oxygen Content 8.9 Vol % Venous Blood Base Excess -16.9 mmol/L Oxygen Delivery Device ROOM AIR Blood Gas Inspired Oxygen 21 % Lactic Acid Level 1.5 mmol/L Last Impressions Abdomen/Pelvis CT 02/03/17 0000 Signed Impressions: Service Date/Time: Friday, February 03, 2017 16:21 - CONCLUSION: 1. Left anterior abdominal wall hernia with findings concerning for strangulated proximal loop of jejunum. No evidence for bowel infarction, perforation, or abscess. 2. Large recannulated periumbilical vein with extensive network of enlarged veins abutting the abdominal wall likely extending to the splenic or left renal vein - notable for surgical planning. This is consistent with some degree of portal hypertension although there is not significant hepatic volume loss to suggest cirrhosis. 3. Innumerable bilateral renal cysts. Multiple have enlarged slightly since 2013 with one cystic lesion in the right kidney now more hyperdense like reflecting a hemorrhagic cyst although density is indeterminate at this time. A large left renal mass previously biopsied in 2013 has also enlarged in the interval, as above. Correlation with pathology results is recommended. 4. Serpiginous left lower lobe opacity suggesting pulmonary AVM. This can be confirmed with contrast-enhanced examination. 5. Moderately distended bladder may reflect some degree of bladder outlet obstruction. This may be confirmed with a postvoid residual exam. 6. 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 7. Multiple additional ancillary findings, as above. This report was called to Mr. Quirino PA-C. Clarence Toledo MD Abdomen X-Ray 02/03/17 0000 Signed Impressions: Service Date/Time: Friday, February 03, 2017 14:34 - CONCLUSION: 1. Stool scattered throughout the colon. 2. Minimal small bowel dilatation in a nonspecific fashion. Blayne Roberson MD FACR Differential Diagnosis Differential diagnosis strangulated hernia, incarcerated hernia, reducible hernia, end-stage renal disease, or joint abnormality, volume overload, sepsis. Narrative Course The patient was initially evaluated by Juwan Wni PA-C and Dr. Arias, please refer to initial history, physical, diagnostic evaluation, treatment modality plan. I was asked by the general surgeon, Dr. Sprague, to sedate the patient for possible reduction. I do discussion with the patient regarding the risk and benefits of conscious sedation, he understands the risk and benefits and except. The patient was placed on end-tidal CO2, oxygen via nasal cannula, pulse oximetry monitoring, and cardiac telemetry monitoring. With respiratory therapy bedside, nursing staff at bedside, and Dr. Sprague the general surgeon at bedside, the patient was sedated with propofol. The hernia was unable to be reduced, the patient tolerated the conscious sedation without problems, there is no obvious complications. Procedures Procedure Narrative After the risks and benefits were discussed the following procedure was performed: MODERATE SEDATION: The patient was placed on a laboratory monitor and pulse oximetry. An ambu bag and suction was immediately available at bedside. The patient was monitored by the nurse. Oxygen saturation, heart rate and blood pressure were monitored. Procedural sedation was acheived using 80 mg propofol. The patient was observed until awake and alert. Procedural Sedation time in attendance was 30 minutes. Diagnosis Primary Impression: Incarcerated hernia of abdominal cavity Admitting Information Admitting Physician Requests: Admit Condition: Serious Korey Santamaria MD Feb 03, 2017 18:40
[2017-02-03] MEDS ORDERED: BUPIVACAINE/EPINEPHRINE 0.5% PF 30 ML VIAL ONE (18:52)
--- NOTE | 2017-02-03 19:07 | HHI.HP ---
[facility] Service Critical Care Medicine Primary Care Physician Bunny Stanford MD Admission Diagnosis Incarcerated abdominal hernia, Acidosis. Diagnosis: Travel History International Travel<30 Days: No Contact w/Intl Traveler <30 Da: No Traveled to Known Affected Are: No History of Present Illness 86-year-old male presents for evaluation of severe abdominal pain. Per patient has had this since this morning. Per patient he was sitting when the pain started. Patient has a history of renal carcinoma and end-stage renal disease however he's been refusing dialysis for last 4 years. CAT scan of the abdomen revealed the incarcerated hernia. He has been evaluated by a surgeon in the emergency department and now is admitted to ICU. Review of Systems Constitutional: DENIES: Diaphoretic episodes, Fatigue, Fever, Weight gain, Weight loss, Chills, Dizziness, Change in appetite, Night Sweats Endocrine: DENIES: Heat/cold intolerance, Polydipsia, Polyuria, Polyphagia Eyes: DENIES: Blurred vision, Diplopia, Eye inflammation, Eye pain, Vision loss , Photosensitivity, Double Vision Ears, nose, mouth, throat: DENIES: Tinnitus, Hearing loss, Vertigo, Nasal discharge, Oral lesions, Throat pain, Hoarseness, Ear Pain, Running Nose, Epistaxis, Sinus Pain, Toothache, Odynophagia Respiratory: DENIES: Apneas, Cough, Snoring, Wheezing, Hemoptysis, Sputum production, Shortness of breath Cardiovascular: DENIES: Chest pain, Palpitations, Syncope, Dyspnea on Exertion , PND, Lower Extremity Edema, Orthopnea, Claudication Gastrointestinal: COMPLAINS OF: Abdominal pain, Nausea, DENIES: Black stools, Bloody stools, Constipation, Diarrhea, Vomiting, Difficulty Swallowing, Anorexia Genitourinary: DENIES: Sexual dysfunction, Urinary frequency, Urinary incontinence, Urgency, Hematuria, Dysuria, Nocturia, Penile Discharge, Testicular Pain, Testicular Swelling Musculoskeletal: DENIES: Joint pain, Muscle aches, Stiffness, Joint Swelling, Back pain, Neck pain Integumentary: DENIES: Abnormal pigmentation, Nail changes, Pruritus, Rash Hematologic/lymphatic: DENIES: Bruising, Lymphadenopathy Immunologic/allergic: DENIES: Eczema, Urticaria Neurologic: DENIES: Abnormal gait, Headache, Localized weakness, Paresthesias, Seizures, Speech Problems, Tremor, Poor Balance Psychiatric: DENIES: Anxiety, Confusion, Mood changes, Depression, Hallucinations, Agitation, Suicidal Ideation, Homicidal Ideation, Delusions Past Family Social History Allergies: Coded Allergies: Penicillin (Verified Allergy, Severe, RASH, 10/28/12) Past Medical History History of coronary artery disease Chronic renal insufficiency stage IV Kidney tumor Past Surgical History Bypass surgery Cholecystectomy Reported Medications Reported Meds & Active Scripts Active Reported Calcitriol 0.5 Mcg Cap 0.5 Mcg PO DAILY Omeprazole 20 Mg Tab 20 Mg PO DAILY Amlodipine (Amlodipine Besylate) 10 Mg Tab 10 Mg PO DAILY Furosemide 40 Mg Tab 40 Mg PO DAILY Sodium Bicarbonate 650 Mg Tab 650 Mg PO TIDPC Calcium Acetate (Phosphate Binder) 667 Mg Cap 667 Mg PO TID Active Ordered Medications Current Medications Medications (Trade) Dose Ordered Sig/Lazaro Route PRN Reason Start Time Stop Time Status Last Admin Dose Admin Calcium Acetate (Phoslo) 667 mg TID PO 02/04/17 09:00 Sodium Bicarbonate 650 mg 650 mg TIDPC PO 02/04/17 09:30 Sodium Chloride (NS 1000 ml Inj) 1,000 ml @ 84 mls/hr [id number] IV 02/03/17 19:01 Sodium Chloride (NS Flush) 2 ml UNSCH PRN .XX FLUSH AFTER USING IV ACCESS 02/03/17 19:15 Sodium Chloride (NS Flush) 2 ml BID .XX 02/03/17 21:00 Acetaminophen (Tylenol) 650 mg Q6H PRN PO PAIN 1-2 AND/OR FEVER >101F 02/03/17 19:15 Hydromorphone HCl (Dilaudid Pf Inj) 0.5 mg Q2HR PRN IV PAIN SCALE 6 TO 10 02/03/17 19:15 Famotidine (Pepcid Inj) 10 mg Q12HR IV PUSH 02/03/17 21:00 Lorazepam (Ativan Inj) 1 mg Q1H PRN IV Agitation/Sedation 02/03/17 19:15 Ondansetron HCl (Zofran Inj) 4 mg Q6H PRN IV NAUSEA OR VOMITING 02/03/17 19:15 Metoclopramide HCl (Reglan Inj) 10 mg Q6H PRN IV NAUSEA OR VOMITING;SEE COMMENT 02/03/17 19:15 Prochlorperazine (Compazine Supp) 25 mg Q12H PRN RECTAL NAUSEA OR VOMITING;SEE COMMENT 02/03/17 19:15 Zolpidem Tartrate (Ambien) 5 mg HS PRN PO INSOMNIA 02/03/17 19:15 Heparin Sodium (Porcine) (Heparin Inj) 5,000 units Q12H SQ 02/03/17 20:00 Miscellaneous Information 1 [id number] 02/03/17 19:15 Chlorhexidine Gluconate (Chlorhexidine 2% Cloth) 3 pack Taper DAILY@04 TOP 02/04/17 04:00 01/31/18 03:59 Chlorhexidine Gluconate (Chlorhexidine 2% Cloth) 3 pack UNSCH PRN TOP HYGIENIC CARE 02/03/17 19:15 Senna/Docusate Sodium (Delmy-Colace) 1 tab BID PO 02/03/17 21:00 Magnesium Hydroxide (Milk Of Magnesia Liq) 30 ml Q12H PRN PO MILD - MODERATE CONSTIPATION 02/03/17 19:15 Sennosides (Senokot) 17.2 mg Q12H PRN PO MODERATE - SEVERE CONSTIPATION 02/03/17 19:15 Bisacodyl (Dulcolax Supp) 10 mg DAILY PRN RECTAL SEVERE CONSITIPATION 02/03/17 19:15 Lactulose (Lactulose Liq) 30 ml DAILY PRN PO SEVERE CONSITIPATION 02/03/17 19:15 Family History Noncontributory Social History Negative 3 Physical Exam Vital Signs Vital Signs Date Time Temp Pulse Resp B/P Pulse Ox O2 Delivery O2 Flow Rate FiO2 02/03/17 18:17 96 Nasal Cannula 3.00 02/03/17 15:02 18 02/03/17 14:32 18 02/03/17 14:16 97.9 88 18 120/83 97 Room Air 02/03/17 14:15 96 Room Air 02/03/17 14:06 97.6 77 20 120/83 100 Physical Exam GENERAL: Well-nourished, well-developed patient. SKIN: Warm and dry. HEAD: Normocephalic. EYES: No scleral icterus. No injection or drainage. NECK: Supple, trachea midline. No JVD or lymphadenopathy. CARDIOVASCULAR: Regular rate and rhythm without murmurs, gallops, or rubs. RESPIRATORY: Breath sounds equal bilaterally. No accessory muscle use. GASTROINTESTINAL: Abdomen soft, tender to palpation in all 4 quadrants MUSCULOSKELETAL: No cyanosis, or edema. BACK: Nontender without obvious deformity. No CVA tenderness. EXTREMITIES: No clubbing, cyanosis Laboratory Laboratory Tests Test 02/03/17 02/03/17 02/03/17 14:22 15:47 15:50 White Blood Count 5.5 Red Blood Count 3.08 Hemoglobin 9.6 Hematocrit 29.5 Mean Corpuscular Volume 95.5 Mean Corpuscular Hemoglobin 31.1 Mean Corpuscular Hemoglobin 32.6 Concent Red Cell Distribution Width 14.8 Platelet Count 115 Mean Platelet Volume 9.6 Neutrophils (%) (Auto) 91.4 Lymphocytes (%) (Auto) 5.1 Monocytes (%) (Auto) 2.7 Eosinophils (%) (Auto) 0.3 Basophils (%) (Auto) 0.5 Neutrophils # (Auto) 5.1 Lymphocytes # (Auto) 0.3 Monocytes # (Auto) 0.2 Eosinophils # (Auto) 0.0 Basophils # (Auto) 0.0 CBC Comment DIFF FINAL Differential Comment Prothrombin Time 11.3 Prothromb Time International 1.0 Ratio Activated Partial 27.2 Thromboplast Time Sodium Level 147 Potassium Level 3.9 Chloride Level 119 Carbon Dioxide Level 10.2 Anion Gap 18 Blood Urea Nitrogen 85 Creatinine 7.51 Estimat Glomerular Filtration 7 Rate Random Glucose 138 Calcium Level 8.1 Total Bilirubin 0.3 Aspartate Amino Transf 22 (AST/SGOT) Alanine Aminotransferase 21 (ALT/SGPT) Alkaline Phosphatase 60 Total Protein 7.0 Albumin 3.5 Lipase 319 Thyroid Stimulating Hormone 2.250 3rd Gen Blood Gas Puncture Site IV Blood Gas Patient Temperature 98.6 Venous Blood pH 7.17 Venous Blood Partial Pressure 29 CO2 Venous Blood Partial Pressure 40 O2 Venous Blood HCO3 10 Venous Blood Oxygen Saturation 70 Venous Blood Oxygen Content 8.9 Venous Blood Base Excess -16.9 Oxygen Delivery Device ROOM AIR Blood Gas Inspired Oxygen 21 Lactic Acid Level 1.5 Result Diagram: 02/03/17 1422 02/03/17 1422 Imaging Last 24 hours Impressions Abdomen/Pelvis CT 02/03/17 0000 Signed Impressions: Service Date/Time: Friday, February 03, 2017 16:21 - CONCLUSION: 1. Left anterior abdominal wall hernia with findings concerning for strangulated proximal loop of jejunum. No evidence for bowel infarction, perforation, or abscess. 2. Large recannulated periumbilical vein with extensive network of enlarged veins abutting the abdominal wall likely extending to the splenic or left renal vein - notable for surgical planning. This is consistent with some degree of portal hypertension although there is not significant hepatic volume loss to suggest cirrhosis. 3. Innumerable bilateral renal cysts. Multiple have enlarged slightly since 2013 with one cystic lesion in the right kidney now more hyperdense like reflecting a hemorrhagic cyst although density is indeterminate at this time. A large left renal mass previously biopsied in 2013 has also enlarged in the interval, as above. Correlation with pathology results is recommended. 4. Serpiginous left lower lobe opacity suggesting pulmonary AVM. This can be confirmed with contrast-enhanced examination. 5. Moderately distended bladder may reflect some degree of bladder outlet obstruction. This may be confirmed with a postvoid residual exam. 6. 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 7. Multiple additional ancillary findings, as above. This report was called to Mr. Quirino PA-C. Clarence Toledo MD Abdomen X-Ray 02/03/17 0000 Signed Impressions: Service Date/Time: Friday, February 03, 2017 14:34 - CONCLUSION: 1. Stool scattered throughout the colon. 2. Minimal small bowel dilatation in a nonspecific fashion. Blayne Roberson MD FACR Assessment and Plan Assessment and Plan Incarcerated hernia - Evaluated by surgeon for possible operative intervention - Nothing by mouth - Pain control - IV fluid hydration End-stage renal disease - Patient has been refusing hemodialysis for last 4 years - Continue supportive care - Nephrology consult Coronary artery disease - No acute event - Supportive care - Aspirin DVT GI prophylaxis - Teds SCDs - Pharmacological prophylaxis per surgeon - IV Pepcid Critical Care: The total critical care time was 35 minutes. Time to perform other separately billable procedures was not included in the critical care time. eDnis Zurita MD Feb 03, 2017 19:07
[2017-02-03] MEDS ORDERED: LORazepam 2 MG/ML VIAL IV PRN (19:15)
[2017-02-03] MEDS ORDERED: ZOLPIDEM TARTRATE 5 MG TAB PO PRN (19:15)
[2017-02-03] MEDS ORDERED: BISACODYL 10 MG SUPP RECTAL PRN (19:15)
[2017-02-03] MEDS ORDERED: SODIUM CHLORIDE 0.9% FLUSH 10 ML FLUSH PRN (19:15)
[2017-02-03] MEDS ORDERED: ONDANSETRON HCL 4 MG/2 ML VIAL IV PRN (19:15)
[2017-02-03] MEDS ORDERED: SENNOSIDES 8.6 MG TAB PO PRN (19:15)
[2017-02-03] MEDS ORDERED: MISCELLANEOUS NURSING INFORMATION XX SCH (19:15)
[2017-02-03] MEDS ORDERED: ACETAMINOPHEN 325 MG TAB PO PRN (19:15)
[2017-02-03] MEDS ORDERED: LACTULOSE SYRUP 20 GM/30 ML CUP PO PRN (19:15)
[2017-02-03] MEDS ORDERED: MAGNESIUM HYDROXIDE SUSP 30 ML CUP PO PRN (19:15)
[2017-02-03] MEDS ORDERED: PROCHLORPERAZINE 25 MG SUPP RECTAL PRN (19:15)
[2017-02-03] MEDS ORDERED: METOCLOPRAMIDE HCL 10 MG/2 ML VIAL IV PRN (19:15)
[2017-02-03] MEDS ORDERED: CHLORHEXIDINE GLUCONATE 2 % 1 PACK (2 CLOTHS) TOP PRN (19:15)
[2017-02-03] MEDS ORDERED: HEPARIN SODIUM - SQ 10,000 UNITS/ML VIAL SQ SCH (20:00)
[2017-02-03] MEDS: FAMOTIDINE 20 MG/2 ML VIAL IV PUSH SCH (21:00)
[2017-02-03] MEDS: DOCUSATE SODIUM 50 MG/SENNA 8.6 MG TAB PO SCH (21:00)
[2017-02-03] MEDS: SODIUM CHLORIDE 0.9% FLUSH 10 ML FLUSH SCH (21:00)
--- NOTE | 2017-02-03 21:33 | HHI.PR ---
Immediate Post Op Note Procedure Date: Feb 03, 2017 Pre Op Diagnosis: incarcerated incisional hernia Post Op Diagnosis: same, necrotic small bowel Surgeon: Low Sprague MD Tree Thinner(s): see or sheet Procedure: open incisional hernia repair with small bowel resection Findings: necrotic bowel Complications: none Specimen(s) removed: small bowel Estimated blood loss: 30cc Anesthesia: General Drains: None IVF (1000) Patient to: PACU Patient Condition: Fair Low Sprague MD Feb 03, 2017 21:33
[2017-02-03] MEDS ORDERED: Post-op Orders (for Pharmacy) MISC XX ONE (21:39)
[2017-02-03] MEDS ORDERED: DO NOT ADM ANY ANTICOAGULANT DRUGS PRN (22:15)
[2017-02-03] MEDS: SODIUM CHLOR 0.9% 1000 ML INJ 1,000 ML IV SCH (22:30)
[2017-02-03 23:45] VITALS: BP 110/55; PULSE 71; RESP 17
[2017-02-04] VITALS (16 sets, daily range): BP systolic 108–146; BP diastolic 55–68; PULSE 69–101; RESP 9–18; TEMP 97.7–98.3; O2SAT 95–99
[2017-02-04] MEDS: CLINDAMYCIN INJ 600 MG in SODIUM CHLORIDE 0.9% INJ 50 ML IV SCH ×3 (00:34→13:26)
[2017-02-04] MEDS: SODIUM CHLOR 0.9% 1000 ML INJ 1,000 ML IV SCH (03:38)
[2017-02-04] MEDS: CHLORHEXIDINE GLUCONATE 2 % 1 PACK (2 CLOTHS) TOP SCH (03:38)
[2017-02-04 04:31] LABS: AUTOMATED NEUTROPHIL # 6.9 TH/MM3 (1.8-7.7); BASOPHIL % 0.2 % (0.0-2.0); HEMATOCRIT 26.2 % (39.0-51.0); HEMO FLAGS DIFF FINAL; LYMPH % 3.8 % (9.0-44.0); LYMPHOCYTE # 0.3 TH/MM3 (1.0-4.8); MEAN CELL VOLUME 96.4 FL (80.0-100.0); MEAN CORPUSCULAR HGB CONC 32.1 % (32.0-36.0); MONO % 4.8 % (0.0-8.0); NEUT % 91.2 % (16.0-70.0); PLATELET COUNT 105 TH/MM3 (150-450); RED BLOOD COUNT 2.72 MIL/MM3 (4.50-5.90); RED CELL DISTRIBUTION WIDTH 15.2 % (11.6-17.2); WHITE BLOOD COUNT 7.5 TH/MM3 (4.0-11.0)
[2017-02-04 04:45] LABS: BICARBONATE 11.7 MEQ/L (21.0-32.0); MAGNESIUM 1.5 MG/DL (1.5-2.5); POTASSIUM 4.8 MEQ/L (3.5-5.1)
[2017-02-04 04:47] LABS: CALCIUM-PROTEIN CORRECTED 7.8 MG/DL (8.5-10.1); TOTAL BILIRUBIN ADULT 0.3 MG/DL (0.2-1.0)
[2017-02-04] MEDS: metroNIDAZOLE 500 MG INJ 100 ML IV SCH ×2 (05:51→13:26)
[2017-02-04] MEDS: CALCIUM ACETATE 667 MG CAP PO SCH ×3 (08:22→18:09)
[2017-02-04 08:39] LABS: BLOOD GAS BASE EXCESS -15.8 mmol/L (-2-2); BLOOD GAS CARBOXYHEMOGLOBIN 1.3 % (0-4); BLOOD GAS HCO3 11 mmol/L (22-26); BLOOD GAS METHEMOGLOBIN 1.2 % (0-2); BLOOD GAS O2 HGB SATURATION 95 % (90-100); BLOOD GAS OXYGEN CONTENT 10.8 Vol % (12.0-20.0); BLOOD GAS PCO2 29 mmHg (38-42); BLOOD GAS PO2 90 mmHg (61-120); CRITICAL VALUE YES; DRAW SITE LT BRACHIAL; LITER FLOW 2 L/M; NUMBER OF ARTERIAL PUNCTURES 1; OXYGEN DEVICE NASAL CANNULA; STAT YES; TEMP CORR TO 98.6; ULNAR PULSE PRESENT
[2017-02-04] MEDS: HEPARIN SODIUM - SQ 10,000 UNITS/ML VIAL SQ SCH ×2 (09:00→20:40)
[2017-02-04] MEDS: DOCUSATE SODIUM 50 MG/SENNA 8.6 MG TAB PO SCH ×2 (09:29→20:39)
[2017-02-04] MEDS: SODIUM CHLORIDE 0.9% FLUSH 10 ML FLUSH SCH ×2 (09:29→20:40)
[2017-02-04] MEDS: FAMOTIDINE 20 MG/2 ML VIAL IV PUSH SCH ×2 (09:29→20:40)
[2017-02-04] MEDS ORDERED: SODIUM BICARBONATE 8.4% INJ 50 MEQ/50 ML SYR IV ONE ×2 (09:30→15:15)
[2017-02-04] MEDS: SODIUM BICARBONATE 650 MG TAB PO SCH ×3 (09:30→18:09)
--- NOTE | 2017-02-04 09:53 | PD.TRANSFR ---
Transfer Summary Admission Date Feb 03, 2017 at 18:32 Admitting Diagnosis Incarcerated abdominal hernia, Acidosis. Diagnoses: (1) Incarcerated incisional hernia Diagnosis: Principal (2) Metabolic acidemia Diagnosis: Principal (3) ESRD (end stage renal disease) Diagnosis: Secondary Transfer Summary/Subjective 86-year-old male presents for evaluation of severe abdominal pain. Per patient has had this since this morning. Per patient he was sitting when the pain started. Patient has a history of renal carcinoma and end-stage renal disease however he's been refusing dialysis for last 4 years. CAT scan of the abdomen revealed the incarcerated hernia. He has been evaluated by a surgeon in the emergency department and now is admitted to ICU. 02/04/17: s/p open incisional hernia repair with small bowel resection. Currently , feels ok. remains in metabolic acidosis. Bicarb gtt started. Patient refuses dialysis, even in the event of life-threatening hyperkalemia. Objective Vital Signs Date Time Temp Pulse Resp B/P Pulse Ox O2 Delivery O2 Flow Rate FiO2 02/04/17 09:03 98 Nasal Cannula 2.00 02/04/17 07:00 78 02/04/17 04:00 97.7 12 124/60 Intake and Output 02/03/17 02/03/17 02/04/17 08:00 16:00 00:00 Intake Total 1300 ml Output Total 120 ml Balance 1180 ml Result Diagram: 02/04/17 0416 02/04/17 0416 Other Results Laboratory Tests Test 02/03/17 02/04/17 15:47 08:25 Blood Gas Puncture Site IV LT BRACHIAL Blood Gas Patient Temperature 98.6 98.6 Venous Blood pH 7.17 (7.360-7.400) Venous Blood Partial Pressure 29 mmHg (44-48) CO2 Venous Blood Partial Pressure 40 mmHg (35-40) O2 Venous Blood HCO3 10 mmol/L (22-26) Venous Blood Oxygen Saturation 70 % (70-76) Venous Blood Oxygen Content 8.9 Vol % (9.0-17.0) Venous Blood Base Excess -16.9 mmol/L (-2-2) Oxygen Delivery Device ROOM AIR NASAL CANNULA Blood Gas Inspired Oxygen 21 % Blood Gas HCO3 11 mmol/L (22-26) Blood Gas Base Excess -15.8 mmol/L (-2-2) Blood Gas Oxygen Saturation 95 % (90-100) Arterial Blood pH 7.20 (7.380-7.420) Arterial Blood Partial 29 mmHg (38-42) Pressure CO2 Arterial Blood Partial 90 mmHg Pressure O2 (61-120) Arterial Blood Oxygen Content 10.8 Vol % (12.0-20.0) Arterial Blood 1.3 % (0-4) Carboxyhemoglobin Arterial Blood Methemoglobin 1.2 % (0-2) Blood Gas Hemoglobin 8.0 G/DL (12.0-16.0) Blood Gas Liter Flow 2 L/M Imaging Last 24 hours Impressions Abdomen/Pelvis CT 02/03/17 0000 Signed Impressions: Service Date/Time: Friday, February 03, 2017 16:21 - CONCLUSION: 1. Left anterior abdominal wall hernia with findings concerning for strangulated proximal loop of jejunum. No evidence for bowel infarction, perforation, or abscess. 2. Large recannulated periumbilical vein with extensive network of enlarged veins abutting the abdominal wall likely extending to the splenic or left renal vein - notable for surgical planning. This is consistent with some degree of portal hypertension although there is not significant hepatic volume loss to suggest cirrhosis. 3. Innumerable bilateral renal cysts. Multiple have enlarged slightly since 2013 with one cystic lesion in the right kidney now more hyperdense like reflecting a hemorrhagic cyst although density is indeterminate at this time. A large left renal mass previously biopsied in 2013 has also enlarged in the interval, as above. Correlation with pathology results is recommended. 4. Serpiginous left lower lobe opacity suggesting pulmonary AVM. This can be confirmed with contrast-enhanced examination. 5. Moderately distended bladder may reflect some degree of bladder outlet obstruction. This may be confirmed with a postvoid residual exam. 6. 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 7. Multiple additional ancillary findings, as above. This report was called to Mr. Quirino PA-C. Clarence Toledo MD Abdomen X-Ray 02/03/17 0000 Signed Impressions: Service Date/Time: Friday, February 03, 2017 14:34 - CONCLUSION: 1. Stool scattered throughout the colon. 2. Minimal small bowel dilatation in a nonspecific fashion. Blayne Roberson MD FACR Objective Remarks GENERAL: Well-nourished, well-developed patient. SKIN: Warm and dry. HEAD: Normocephalic. EYES: No scleral icterus. No injection or drainage. NECK: Supple, trachea midline. No JVD or lymphadenopathy. CARDIOVASCULAR: Regular rate and rhythm without murmurs, gallops, or rubs. RESPIRATORY: Breath sounds equal bilaterally. No accessory muscle use. GASTROINTESTINAL: Abdomen soft, mildly tender to palpation in all 4 quadrants. Incision dressing CDI MUSCULOSKELETAL: No cyanosis, or edema. BACK: Nontender without obvious deformity. No CVA tenderness. EXTREMITIES: No clubbing, cyanosis NEURO: No FND A/P Assessment and Plan Incarcerated hernia - Open incisional hernia repair with small bowel resection - DC NGT. Clear liquid diet ok per Dr. Sprague - Pain control - IV fluid hydration with bicarbonate infusion - ABX per general surgery End-stage renal disease - Patient has been refusing hemodialysis for last 4 years - Continue supportive care - Nephrology consult - I personally discussed with the patient, he refuses dialysis even in the event of life-threatening hyperkalemia Coronary artery disease - No acute event - Supportive care - Aspirin DVT GI prophylaxis - Teds SCDs - Pharmacological prophylaxis with sq heparin - IV Pepcid Critical Care: level 2 Transfer to [facility]. Transfer out of ICU if ABG is improved at 1400 Yarelis Rosa MD Feb 04, 2017 09:53
[2017-02-04] MEDS: SODIUM BICARBONATE 8.4% INJ 100 MEQ in DEXTROSE 5% IN WATE 1000ML INJ 1,000 ML IV SCH ×4 (10:54→21:50)
[2017-02-04] MEDS ORDERED: SODIUM BICARBONATE 8.4% SOLN 50 MEQ/50 ML VIAL IV ONE (11:00)
--- NOTE | 2017-02-04 11:47 | HHI.PR ---
Subjective Subjective Notes Up to chair doing exercises with PT Family at bedside Objective Vitals/I&O Vital Signs Date Time Temp Pulse Resp B/P Pulse Ox O2 Delivery O2 Flow Rate FiO2 02/04/17 10:00 84 02/04/17 09:03 98 Nasal Cannula 2.00 02/04/17 04:00 97.7 12 124/60 Labs Laboratory Tests Test 02/03/17 02/03/17 02/03/17 02/03/17 14:22 15:47 15:50 23:55 White Blood Count 5.5 Red Blood Count 3.08 Hemoglobin 9.6 Hematocrit 29.5 Mean Corpuscular Volume 95.5 Mean Corpuscular Hemoglobin 31.1 Mean Corpuscular Hemoglobin 32.6 Concent Red Cell Distribution Width 14.8 Platelet Count 115 Mean Platelet Volume 9.6 Neutrophils (%) (Auto) 91.4 Lymphocytes (%) (Auto) 5.1 Monocytes (%) (Auto) 2.7 Eosinophils (%) (Auto) 0.3 Basophils (%) (Auto) 0.5 Neutrophils # (Auto) 5.1 Lymphocytes # (Auto) 0.3 Monocytes # (Auto) 0.2 Eosinophils # (Auto) 0.0 Basophils # (Auto) 0.0 CBC Comment DIFF FINAL Differential Comment Prothrombin Time 11.3 Prothromb Time International 1.0 Ratio Activated Partial 27.2 Thromboplast Time Sodium Level 147 Potassium Level 3.9 Chloride Level 119 Carbon Dioxide Level 10.2 Anion Gap 18 Blood Urea Nitrogen 85 Creatinine 7.51 Estimat Glomerular Filtration 7 Rate Random Glucose 138 Calcium Level 8.1 Total Bilirubin 0.3 Aspartate Amino Transf 22 (AST/SGOT) Alanine Aminotransferase 21 (ALT/SGPT) Alkaline Phosphatase 60 Total Protein 7.0 Albumin 3.5 Lipase 319 Thyroid Stimulating Hormone 2.250 3rd Gen Blood Gas Puncture Site IV Blood Gas Patient Temperature 98.6 Venous Blood pH 7.17 Venous Blood Partial Pressure 29 CO2 Venous Blood Partial Pressure 40 O2 Venous Blood HCO3 10 Venous Blood Oxygen Saturation 70 Venous Blood Oxygen Content 8.9 Venous Blood Base Excess -16.9 Oxygen Delivery Device ROOM AIR Blood Gas Inspired Oxygen 21 Lactic Acid Level 1.5 Nasal Screen MRSA (PCR) MRSA NOT DETECTED Test 02/04/17 02/04/17 04:16 08:25 White Blood Count 7.5 Red Blood Count 2.72 Hemoglobin 8.4 Hematocrit 26.2 Mean Corpuscular Volume 96.4 Mean Corpuscular Hemoglobin 31.0 Mean Corpuscular Hemoglobin 32.1 Concent Red Cell Distribution Width 15.2 Platelet Count 105 Mean Platelet Volume 9.1 Neutrophils (%) (Auto) 91.2 Lymphocytes (%) (Auto) 3.8 Monocytes (%) (Auto) 4.8 Eosinophils (%) (Auto) 0.0 Basophils (%) (Auto) 0.2 Neutrophils # (Auto) 6.9 Lymphocytes # (Auto) 0.3 Monocytes # (Auto) 0.4 Eosinophils # (Auto) 0.0 Basophils # (Auto) 0.0 CBC Comment DIFF FINAL Differential Comment Hematology Comments Sodium Level 149 Potassium Level 4.8 Chloride Level 124 Carbon Dioxide Level 11.7 Anion Gap 13 Blood Urea Nitrogen 78 Creatinine 7.09 Estimat Glomerular Filtration 7 Rate Random Glucose 102 Calcium Level 7.4 Protein Corrected Calcium 7.8 Phosphorus Level 7.4 Magnesium Level 1.5 Total Bilirubin 0.3 Aspartate Amino Transf 76 (AST/SGOT) Alanine Aminotransferase 57 (ALT/SGPT) Alkaline Phosphatase 72 Total Protein 6.3 Albumin 3.0 Blood Gas Puncture Site LT BRACHIAL Blood Gas Patient Temperature 98.6 Blood Gas HCO3 11 Blood Gas Base Excess -15.8 Blood Gas Oxygen Saturation 95 Arterial Blood pH 7.20 Arterial Blood Partial 29 Pressure CO2 Arterial Blood Partial 90 Pressure O2 Arterial Blood Oxygen Content 10.8 Arterial Blood 1.3 Carboxyhemoglobin Arterial Blood Methemoglobin 1.2 Blood Gas Hemoglobin 8.0 Oxygen Delivery Device NASAL CANNULA Blood Gas Liter Flow 2 Cardiovascular: Regular Lungs: Clear Abdomen: Other (soft; ANA LILIA in place with moderate amount of drainage) Extremities: No edema Narrative Exam NGT in place A/P Assessment and Plan 86 year old male POD1 open incarcerated hernia repair with SBR -DC NGT -Start sips of clears -OOB -VSS -Nephrology consulted---patient is aware of his elevated creatinine levels but at this time does not want HD; defer to Nephrology -Transfer to med surg Attending Statement patient seen at bedside no issues s/p hernia repair with sb resection CRF defer to nephro transfer ok Attestation The exam, history, and the medical decision-making described in the above note were completed with the assistance of the mid-level provider. I reviewed and agree with the findings presented. I attest that I had a [id number] encounter with the patient on the same day, and personally performed and documented my assessment and findings in the medical record. Keyla Hooper Feb 04, 2017 11:47 Low Sprague MD Feb 11, 2017 19:05
[2017-02-04 14:40] LABS: BLOOD GAS BASE EXCESS -15.9 mmol/L (-2-2); BLOOD GAS CARBOXYHEMOGLOBIN 1.3 % (0-4); BLOOD GAS HCO3 11 mmol/L (22-26); BLOOD GAS O2 HGB SATURATION 93 % (90-100); BLOOD GAS OXYGEN CONTENT 11.9 Vol % (12.0-20.0); BLOOD GAS PCO2 29 mmHg (38-42); BLOOD GAS PO2 82 mmHg (61-120); TEMP CORR TO 98.6
[2017-02-04 14:41] LABS: CRITICAL VALUE YES; DRAW SITE RT BRACHIAL; LITER FLOW 2 L/M; NUMBER OF ARTERIAL PUNCTURES 1; OXYGEN DEVICE NASAL CANNULA; STAT NO
[2017-02-04 16:32] LABS: BICARBONATE 13.6 MEQ/L (21.0-32.0); CALCIUM-PROTEIN CORRECTED 7.6 MG/DL (8.5-10.1); POTASSIUM 4.4 MEQ/L (3.5-5.1); TOTAL BILIRUBIN ADULT 0.3 MG/DL (0.2-1.0)
--- NOTE | 2017-02-04 17:21 | MB ---
cc: DEVON DORMAN MD DATE OF CONSULTATION 02/04/17 REASON FOR CONSULTATION Chronic kidney disease with very high BUN and creatinine. HISTORY OF PRESENT ILLNESS This is an 86-year-old male known to me from before with past medical history of chronic kidney disease, advanced renal disease, history of possible renal tumor, chronic anemia, ischemic heart disease. He came to the hospital with complaint of left sided abdominal pain. The patient was diagnosed here with incarcerated hernia and he underwent surgery last night. The patient has known history of chronic kidney disease, advanced renal failure and he has a complex mass in the left kidney for which he refused to do anymore workup. He was seeing the urologist. but he is not seeing the neurologist anymore because he does not want any surgery. He has stage V chronic kidney disease and has been refusing to do dialysis. When he came in here, it was found that his creatinine was very high 7.5 and he also has very low bicarb 10.2. The patient tends to run low bicarb. He has been on bicarb supplement at home. but usually it is around 15-16 most of the time. He has been following regularly with me in the office and, despite many discussions, he has been refusing for dialysis and he knows the worst outcome which could be the end of his life but he does not want dialysis. He denies any shortness of breath. He has mild pain at the site of surgery, but according him it is much better. There is no nausea or vomiting. No history of diarrhea. He had some urinary retention last night and currently has a Dc catheter. PAST MEDICAL HISTORY 1. Chronic kidney disease, 2. Advanced renal failure. 3. Chronic anemia, 4. Ischemic heart disease 5. History of renal mass. PAST SURGICAL HISTORY 1. Coronary artery bypass surgery, 2. Cholecystectomy, 3. History of carotid endarterectomy. REVIEW OF SYSTEMS The patient has generalized weakness, feeling tired. Denies any headache, dizziness or blurring of vision. Denies any shortness of breath or chest pain. No palpitation. No nausea, vomiting. He has mild pain at the site of the surgery. This pain started yesterday morning and it was getting worse. He has this hernia for some time. There is no history of constipation. SOCIAL HISTORY The patient is single. He has no history of smoking or alcoholism. FAMILY HISTORY Noncontributory. ALLERGIES PENICILLIN MEDICATIONS Currently 1. IV fluid with sodium bicarbonate and dextrose at 75 an hour 2. Delmy-Colace 1 tablet b.i.d. 3. Heparin 5000 units subcu q. 12-hour 4. Pepcid 10 mg q. 12 hour, 5. Clindamycin 600 grams IV q. 8-hour 6. PhosLo 667 mg t.i.d., 7. Sodium bicarbonate 650 mg t.i.d. 8. Ativan and Zofran as needed. PHYSICAL EXAMINATION GENERAL: The patient is awake, alert. He is not in acute distress. VITAL SIGNS: Last blood pressure is 124/60, temperature is 97.7. HEENT: Pupils equally reacting to light. Nonicteric sclerae, conjunctivae pale. NECK: Supple. JVD is not elevated. LUNGS: The patient has bilateral decreased air entry with occasional wheezing. HEART: S1, S2 regular rhythm. ABDOMEN: Distended, soft, lax. There is a dressing in the left lower quadrant. Bowel sounds positive. EXTREMITIES: He has mild edema in the legs. LABORATORY DATA Sodium is 149, potassium 4.8, chloride 124, bicarb 11.7, BUN 78, creatinine 7.0, calcium 7.4 corrected calcium 7.8, phosphorus 7.4, magnesium 1.5, AST 76, ALT is 57, total protein 6.3, albumin is 3.0, INR is 1.0. Urinalysis not done during this admission. IMAGING STUDIES The patient had CT scan of the abdominal pelvis which shows left anterior abdominal wall hernia suggestive of a strangulation. innumerable bilateral renal cysts, multiple have enlarged since 2012 and one cystic lesion in the right kidney now more hyperdense, possible hemorrhagic cyst suspicious opacity in the lower lobe if the lung showing possible AVM, moderately distended bladder. ASSESSMENT/PLAN 1. Incarcerated hernia, post surgery 2. Chronic kidney disease, advanced renal failure 3. Severe metabolic acidosis 4. Hypocalcemia and hyperphosphatemia. 5. Anemia. 6. Possibility of renal mass with malignancy. Patient has known history of chronic kidney disease and has been refusing dialysis and wants to continue the medications. He knows all the risks including endanger to his life and now his acidosis os much worse possibly because of this incarcerated hernia. He has still not started on p.o. medications. Sodium is slightly elevated because of sodium bicarbonate infusion and it should improve once he starts drinking liquids. I discussed with him again about dialysis and he is firm with his decision that he does not want dialysis even if he gets more sick. His GFR has been in the range of 8-9 mL in the past. We will try to manage conservatively with the medications. He is not in fluid overload status. Thank you for the consultation and I will follow the patient while he is in the hospital. MD DEE Saucedo/ /12:38 PM /4:58 PM
[2017-02-04 17:23] LABS: BLOOD GAS BASE EXCESS -12.9 mmol/L (-2-2); BLOOD GAS CARBOXYHEMOGLOBIN 1.3 % (0-4); BLOOD GAS HCO3 13 mmol/L (22-26); BLOOD GAS O2 HGB SATURATION 92 % (90-100); BLOOD GAS OXYGEN CONTENT 10.7 Vol % (12.0-20.0); BLOOD GAS PCO2 28 mmHg (38-42); BLOOD GAS PO2 71 mmHg (61-120); BLOOD GAS TOTAL HGB 8.2 G/DL (12.0-16.0); CRITICAL VALUE YES; DRAW SITE LT BRACHIAL; LITER FLOW 2 L/M; NUMBER OF ARTERIAL PUNCTURES 1; OXYGEN DEVICE NASAL CANNULA; STAT NO; TEMP CORR TO 98.6; ULNAR PULSE PRESENT
[2017-02-05] VITALS (16 sets, daily range): BP systolic 123–159; BP diastolic 57–89; PULSE 78–125; RESP 16–20; TEMP 98.4–99; O2SAT 92–97
[2017-02-05] MEDS: SODIUM BICARBONATE 8.4% INJ 100 MEQ in DEXTROSE 5% IN WATE 1000ML INJ 1,000 ML IV SCH ×4 (03:06→13:05)
[2017-02-05] MEDS: CHLORHEXIDINE GLUCONATE 2 % 1 PACK (2 CLOTHS) TOP SCH (04:00)
[2017-02-05 05:47] LABS: AUTOMATED NEUTROPHIL # 4.6 TH/MM3 (1.8-7.7); BASOPHIL % 0.6 % (0.0-2.0); EOSINOPHIL % 0.8 % (0.0-4.0); HEMATOCRIT 25.3 % (39.0-51.0); LYMPH % 11.4 % (9.0-44.0); LYMPHOCYTE # 0.7 TH/MM3 (1.0-4.8); MEAN CORPUSCULAR HEMOGLOBIN 31.1 PG (27.0-34.0); MEAN CORPUSCULAR HGB CONC 32.4 % (32.0-36.0); MONO % 9.1 % (0.0-8.0); NEUT % 78.1 % (16.0-70.0); PLATELET COUNT 92 TH/MM3 (150-450); RED BLOOD COUNT 2.64 MIL/MM3 (4.50-5.90); RED CELL DISTRIBUTION WIDTH 15.2 % (11.6-17.2); WHITE BLOOD COUNT 5.9 TH/MM3 (4.0-11.0)
[2017-02-05 05:54] LABS: HEMO FLAGS AUTO DIFF
[2017-02-05 06:05] LABS: BICARBONATE 19.5 MEQ/L (21.0-32.0); POTASSIUM 4.3 MEQ/L (3.5-5.1)
[2017-02-05 06:07] LABS: CALCIUM-PROTEIN CORRECTED 7.6 MG/DL (8.5-10.1); TOTAL BILIRUBIN ADULT 0.3 MG/DL (0.2-1.0)
--- NOTE | 2017-02-05 06:57 | MB ---
cc: DAMIAN TUCKER MD DATE OF CONSULTATION 02/03/2017 REASON FOR CONSULTATION Incarcerated ventral hernia, incisional hernia. HISTORY OF PRESENT ILLNESS The patient is an 86-year-old male with multiple medical issues who presented with acute onset of severe abdominal pain. He states the pain has been going on since morning. It has been located in the left lower quadrant of the abdomen. He also noted a bulge. He states the bulge is at a previous incision site for exploratory surgery. He states the bulge is consistent with a hernia and he was not able to push it back in. The pain is a 10/10. It is not relieved by any medication. It is worse with palpation and moving and the patient also had multiple episodes of nausea and vomiting. He came to the emergency department with further evaluation including CT scan showing an incarcerated incisional ventral hernia. Attempts were made to reduce the hernia under sedation without success. Therefore the decision was for emergently taking the patient to the operating room. On my exam, the patient is complaining of severe pain. He states the pain is pretty significant. He denies any significant fevers or chills, but he has been having episodes of nausea and vomiting and no bowel movement. The patient does have several medical issues including end-stage renal disease for the past four years for which he has refused dialysis. He is a DNR status as well. PAST MEDICAL HISTORY 1. Chronic kidney disease 2. End-stage renal disease 3. History of coronary artery disease. 4. Kidney tumor PAST SURGICAL HISTORY 1. CABG 2. Cholecystectomy 3. Exploratory surgery MEDICATIONS See EMR. ALLERGIES PENICILLIN SOCIAL HISTORY Denies smoking, ETOH or IVDA. FAMILY HISTORY Denies hypertension or diabetes. REVIEW OF SYSTEMS GENERAL: The patient is in a mild distress, but denies fevers or chills. HEENT: Denies eye pain or ear pain. NECK: Denies swelling or pain. LUNGS: Denies cough or wheeze. CARDIAC: History of SD. Denies current chest pain. GI: Complains of nausea, vomiting, and abdominal pain. : Denies dysuria or hematuria. MUSCULOSKELETAL: Denies arthralgia or myalgias. HEMATOLOGIC: Denies bleeding or bruising. IMMUNOLOGIC: Denies eczema or urticaria. NEUROLOGIC: Neurologic: Denies numbness, tingling or headache. PSYCH: Denies change in mood or affect. PHYSICAL EXAMINATION VITAL SIGNS: Temperature 97.6, pulse 77, respirations 20, blood pressure 120/83, saturation of 100 percent on room air. HEENT: PERRLA. NECK: Supple. Trachea midline. LUNGS: Bilateral expansion. Clear. HEART: S1-S2 regular rhythm. ABDOMEN: Soft, positive tenderness to palpation, palpable hernia defect without ability to reduce this. Tenderness extensively to the hernia sac. Palpable small bowel. Large transverse midline incision. Mild distention. EXTREMITIES: Warm, well-perfused. BACK: Nontender. Normal curvature. SKIN: No obvious masses or lesions. PSYCH: Good insight, good judgment. LABORATORY AND DIAGNOSTIC DATA WBC is 5.5, hemoglobin 9.6, hematocrit 29.5, platelets 115. Sodium 147, potassium 3.9, chloride 119, BUN is 85, creatinine 7.5, lactate 1.5, AST is 22, ALT 21, T-bili 0.3, lipase 315, INR 1, PTT 27.2. CT scan reviewed by myself, left anterior abdominal wall hernia concerning for a strangulated jejunal loop, prominent veins, evidence of portal hypertension, large cystic lesion, kidney hyperdense on the left. Pulmonary AVM. Distended bladder. ASSESSMENT The patient is an 86-year-old male with multiple medical issues who presents with the acute onset of incarceration of incisional hernia. PLAN After a full clinical and radiologic laboratory workup, the patient with the above-named issues including incarcerated ventral hernia. At this time, we will plan for emergent operative intervention including open hernia repair, possible bowel resection. This is discussed at length with the patient regarding the severity of the situation and the need to proceed with a life-saving operative intervention. Fully discussed the risks, benefits and other alternatives. The patient is aware that he will be ventilated for the procedure and possibly on the ventilator following the procedure. The patient is also aware if he does not undergo the procedure, there will be dire consequences. He states complete understanding of this. He again is a DNR status and has significant medical issues, but would like to proceed with operative repair. I discussed the possibility of a bowel resection if the GI tract is not viable. MD ABDIAZIZ Lloyd/SHIRA /9:41 PM /6:45 AM
[2017-02-05 07:06] LABS: ACANTHOCYTES OCC (NORMAL); OVALOCYTES 1+ (NORMAL)
[2017-02-05 07:07] LABS: PLATELET ESTIMATE SMEAR LOW (NORMAL); PLATELET MORPHOLOGY NORMAL (NORMAL); SCAN/DIFF AUTO DIFF CONFIRMED
[2017-02-05 07:13] LABS: MAGNESIUM 1.3 MG/DL (1.5-2.5)
[2017-02-05] MEDS ORDERED: METOPROLOL TARTRATE 5 MG/5 ML VIAL IV PUSH ONE (07:15)
--- NOTE | 2017-02-05 08:17 | HHI.PR ---
Subjective Subjective Notes a fib this am, given metoprolol, pain controlled, no nausea, no flatus Objective Vitals/I&O Vital Signs Date Time Temp Pulse Resp B/P Pulse Ox O2 Delivery O2 Flow Rate FiO2 02/05/17 07:00 Nasal Cannula 2.00 02/05/17 06:00 122 02/05/17 06:00 20 123/73 92 02/05/17 04:00 99.0 Labs Laboratory Tests Test 02/04/17 02/04/17 02/04/17 02/04/17 08:25 14:20 15:39 17:09 Blood Gas Puncture Site LT BRACHIAL RT BRACHIAL LT BRACHIAL Blood Gas Patient Temperature 98.6 98.6 98.6 Blood Gas HCO3 11 11 13 Blood Gas Base Excess -15.8 -15.9 -12.9 Blood Gas Oxygen Saturation 95 93 92 Arterial Blood pH 7.20 7.20 7.27 Arterial Blood Partial 29 29 28 Pressure CO2 Arterial Blood Partial 90 82 71 Pressure O2 Arterial Blood Oxygen Content 10.8 11.9 10.7 Arterial Blood 1.3 1.3 1.3 Carboxyhemoglobin Arterial Blood Methemoglobin 1.2 1.0 1.0 Blood Gas Hemoglobin 8.0 9.0 8.2 Oxygen Delivery Device NASAL CANNULA NASAL CANNULA NASAL CANNULA Blood Gas Liter Flow 2 2 2 Sodium Level 149 Potassium Level 4.4 Chloride Level 122 Carbon Dioxide Level 13.6 Anion Gap 13 Blood Urea Nitrogen 82 Creatinine 7.52 Estimat Glomerular Filtration 7 Rate Random Glucose 99 Lactic Acid Level 2.8 Calcium Level 7.1 Protein Corrected Calcium 7.6 Total Bilirubin 0.3 Aspartate Amino Transf 47 (AST/SGOT) Alanine Aminotransferase 46 (ALT/SGPT) Alkaline Phosphatase 67 Total Protein 6.1 Albumin 2.9 Test 02/05/17 02/05/17 05:17 05:18 White Blood Count 5.9 Red Blood Count 2.64 Hemoglobin 8.2 Hematocrit 25.3 Mean Corpuscular Volume 96.0 Mean Corpuscular Hemoglobin 31.1 Mean Corpuscular Hemoglobin 32.4 Concent Red Cell Distribution Width 15.2 Platelet Count 92 Mean Platelet Volume 9.4 Neutrophils (%) (Auto) 78.1 Lymphocytes (%) (Auto) 11.4 Monocytes (%) (Auto) 9.1 Eosinophils (%) (Auto) 0.8 Basophils (%) (Auto) 0.6 Neutrophils # (Auto) 4.6 Lymphocytes # (Auto) 0.7 Monocytes # (Auto) 0.5 Eosinophils # (Auto) 0.0 Basophils # (Auto) 0.0 CBC Comment AUTO DIFF Differential Comment AUTO DIFF CONFIRMED Platelet Estimate LOW Platelet Morphology Comment NORMAL Ovalocytes 1+ Acanthocytes OCC Sodium Level 147 Potassium Level 4.3 Chloride Level 116 Carbon Dioxide Level 19.5 Anion Gap 12 Blood Urea Nitrogen 74 Creatinine 7.01 Estimat Glomerular Filtration 8 Rate Random Glucose 101 Calcium Level 7.1 Protein Corrected Calcium 7.6 Magnesium Level 1.3 Total Bilirubin 0.3 Aspartate Amino Transf 36 (AST/SGOT) Alanine Aminotransferase 40 (ALT/SGPT) Alkaline Phosphatase 66 Total Protein 6.1 Albumin 2.9 Cardiovascular: Irregular Lungs: Rhonchi Abdomen: Other (incision with scant dry blood on kyle) A/P Assessment and Plan s/p incarcerated hernia repair with sb resection PLAN OOB A.fib mgnt per hepas pulm toilet is, breathing tx will change dressing today will advance diet slowly, bowel regimen Low Sprague MD Feb 05, 2017 08:17
[2017-02-05] MEDS: SODIUM BICARBONATE 650 MG TAB PO SCH ×3 (08:26→18:15)
[2017-02-05] MEDS: CALCIUM ACETATE 667 MG CAP PO SCH ×3 (08:26→18:15)
[2017-02-05] MEDS: DOCUSATE SODIUM 50 MG/SENNA 8.6 MG TAB PO SCH ×2 (08:26→20:49)
[2017-02-05] MEDS: MAGNESIUM SULFATE 1 GM PREMIX 100 ML IV SCH ×2 (08:27→09:22)
[2017-02-05] MEDS: HEPARIN SODIUM - SQ 10,000 UNITS/ML VIAL SQ SCH ×2 (08:27→20:49)
[2017-02-05] MEDS: SODIUM CHLORIDE 0.9% FLUSH 10 ML FLUSH SCH ×2 (08:27→20:49)
[2017-02-05] MEDS: METOPROLOL TARTRATE 25 MG TAB PO SCH ×2 (08:27→20:49)
[2017-02-05] MEDS ORDERED: PILL SPLITTER OTHER PRN (08:30)
[2017-02-05] MEDS: FAMOTIDINE 20 MG TAB PO SCH ×2 (08:50→20:49)
[2017-02-05] MEDS ORDERED: DILTIAZEM INJ 125 MG in SODIUM CHLORIDE 0.9% INJ 100 ML IV PRN (09:00)
--- NOTE | 2017-02-05 09:11 | MB ---
cc: NICOLE MARTINEZ M.D. DATE OF CONSULTATION 02/05/2017 REASON FOR CONSULTATION Navneet is a very pleasant 86-year-old gentleman with a history of coronary artery disease status post CABG, history of carotid stenosis status post carotid endarterectomy. He is admitted with an incarcerated abdominal hernia, acidosis, renal failure, found to be in A. fib today at the bedside. He is in A. Fib, heart rate ranging between 100 and 110. He does state he is short of breath, but otherwise denies chest pain, palpitations, fevers, chills, cough, GI or bleeding, pain, orthopnea, or dizziness. PAST MEDICAL HISTORY His past medical history is per is present illness. The patient was actually admitted on February 03 with a chief complaint at that time of severe abdominal pain. His past medical history includes: 1. A history of myocardial infarction. 2. Coronary artery disease 3. Seizure disorder 4. Cholecystectomy 5. Herniorrhaphy 6. CABG in 2003 7. Tonsillectomy 8. Left kidney surgery SOCIAL HISTORY Denies tobacco or alcohol use. ALLERGIES PENICILLIN MEDICATIONS 1. Famotidine 20 b.i.d. 2. Metoprolol 25 q.12 h. 3. Cardizem drip 4. Magnesium supplementation 5. Calcium 667 mg t.i.d. 6. Heparin 5000 subcu q.12 h PHYSICAL EXAMINATION Pulse ranging between 95 and 122, blood pressure 123/73, temperature 99.0, respiratory 20. GENERAL: He is alert and oriented x3 in no acute distress. NECK: Supple. No JVD or bruits. CARDIOVASCULAR: S1 and S2. No murmurs, rubs or gallops. LUNGS: Clear to auscultation. ABDOMEN: Soft, nontender and nondistended with positive bowel sounds. EXTREMITIES: No extremity edema. LABS White count 5.9, hemoglobin 8.2, hematocrit 25.3, platelet count 92. Sodium 147, potassium 4.3, chloride 116, bicarbonate 19.5, BUN 74, creatinine 7.01, calcium 7.1, magnesium 1.3, albumin 2.9, INR is 1.0. Blood gas yesterday pH 7.27, pCO2 28, pO2 71. The pH was as low as 7.20 on 02/04/2017 at 08:25 a.m. The abdominal pelvis CT left anterior abdominal wall hernia with findings consistent with strangulated proximal loop of jejunum, large free cannulated periumbilical vein with extensive nephric enlargement abutting the abdominal wall likely extending to the splenic or left renal vein notable for surgical planning. This is consistent with some degree of portal hypertension, although there is not significant hepatic volume loss to suggest cirrhosis. Innumerable bilateral renal cyst multiple having enlarged since 2002 with one cystic lesion in the right kidney now more hyperdense, likely reflecting hemorrhagic cysts although density is indeterminate at this time. A large left renal mass previously biopsied in 2013 is also margin interval as above. The patient's left lower lobe opacities is suggesting pulmonary AVM, moderately distended bladder, moderate to severe paraseptal emphysema with small right pleural effusion. Pleural-based calcifications right hemithorax. Abdominal x-ray, minimal small bowel dilatation and nonspecific fractions of stool scattered throughout the colon. EKG has not been done. DIAGNOSIS 1. A. fib with rapid ventricular response 2. Metabolic acidosis 3. Anemia 4. Thrombocytopenia 5. Hypernatremia 6. Acute renal failure 7. Chronic renal insufficiency 8. Hypocalcemia 9. Hypomagnesemia 10. Hypoalbuminemia 11. Incarcerated bowel 12. Abdominal wall hernia 13. Portal hypertension 14. Coronary artery disease 15. Status post CABG 16. Peripheral vascular disease 17. Status post endarterectomy 18. 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 Bladder outlet obstruction DISCUSSION At this point in time, we will be cautious at rate control given the patient's anemia. I think it is reasonable in the short term to keep his heart rate below 130. Obviously long-term goal is to keep it low at 100. He is currently being adequately managed with a Cardizem drip and Lopressor oral. I have discussed with him the risks and benefits of anticoagulation. The patient currently refuses consideration for Coumadin and/or oral anticoagulant agent. In addition, he is anemic with thrombocytopenia and has an incarcerated bowel. Otherwise, in the absence of Coumadin, would recommend aspirin 81 mg a day if and/or when approved by general surgery. Also, we will check fasting lipids treat at per NCP guidelines. LEXIE inhibitor held due to renal failure. Continue beta mega. MD ELIF Mendosa/SHIRA /8:25 AM /8:53 AM
--- NOTE | 2017-02-05 12:25 | MP ---
cc: DAMIAN SPRAGUE MD DATE OF SURGERY 02/03/2017 PREOPERATIVE DIAGNOSIS Incarcerated incisional hernia. POSTOPERATIVE DIAGNOSIS Incarcerated incisional hernia. PROCEDURE PERFORMED 1. Open repair and reduction of incarcerated incisional hernia primarily. 2. Small bowel resection. SURGEON Dr. Damian Sprague LOST CHARGE CARD CLERK See OR sheet ANESTHESIA GETA IV FLUIDS 1000 cc ESTIMATED BLOOD LOSS 30 cc DRAINS None COMPLICATIONS None WOUND CLASSIFICATION Contaminated FINDINGS Necrotic small bowel, small hernia neck INDICATION The patient is an 86-year-old male who presents with complaints of acute onset of abdominal pain and a bulge to his left lower abdomen at a large exploratory incisional site. The patient stated this started this morning acute onset. He had multiple episodes of nausea and vomiting and had no bowel movement. He had a 10/10 pain and therefore decided to come to the emergency department for further evaluation including a CT scan with findings of incarcerated small bowel. Attempted manual reduction was done under sedation in the emergency department without success, therefore the decision was made for emergent operative intervention including hernia repair. This was discussed with the patient in detail. DETAILS OF THE PROCEDURE The patient was taken to the operating suite, placed in the supine position and was prepped and draped in the usual sterile fashion after induction of general endotracheal anesthesia. A brief time-out done stating correct patient, procedure, surgical site and we were all in agreement with this. Attention was first directed to the hernia bulge in the left anterior abdominal wall lower quadrant. A transverse 7 cm incision was made with a 15 blade. Further dissection was done with electro Bovie cautery. Dissection done to the hernia sac. The hernia sac was mobilized to the fascia. The sac was entered and noted to have necrotic bowel to it. The hernia neck at the fascia was extended in order to allow the bowel to be more freely mobile. The bowel was placed in saline gauze and the hernia sac was fully resected. Hemostasis obtained. On further inspection after several minutes, the bowel was a little more pink, however, there were areas necrotic areas with some hematoma at the mesentery and thrombosis. Therefore, the decision was made for bowel resection. A 55 SRIRAM stapler was used blue load to transect the bowel at both viable places proximal and distal x2. Next, the mesentery was transected between Danni clamps and Metzenbaum scissors. The mesentery was oversewn with 2-0 silk ties. Once we were satisfied with this, a specimen was sent for pathology. The anastomosis was created. A stay suture was placed. Electro Bovie cautery was used to transect small holes in both sides of the small bowel. An Endo-SRIRAM blue load stapler was used to create a dqsweve-web-ghmhhon layer. The enterotomy connecting the bowels was then grasped with Allis clamps. A SRIRAM stapler was used to transect the staple across this. A crotch stitch was placed. The staple line was oversewn in Lembert fashion. The mesenteric defect was closed with several sutures in [id number] fashion. The anastomosis was noted to be patent. The bowel was then reduced back into the abdomen. The hernia sac was continued to be addressed. Small skin flaps were mobilized around the hernia defect. The fascia was undermined as well in order to allow for good suture purchase. Several silk sutures were just placed for ligation of small little vessels through the subcutaneous fascia. A small amount of Alba was placed as well in the open bed to help assist in hemostasis. The hernia defect was then approximated using #1 Prolene in a mxcwed-uh-urfij fashion to approximate the fascial edges. A second reinforcement was done with #1 Prolene in a running fashion. Again, hemostasis was obtained. 3-0 Vicryl was used to help approximate the fascia and close some at the defects. Next, the wound was then irrigated with saline. Toney were then placed to approximate the skin edges. Telfa jesus placed to keep the dressing placed as well. All lap and instrument counts were correct at the end of the procedure. The patient tolerated the procedure with no intraoperative complications. The patient was extubated and taken to PACU. SPECIMEN Small bowel sent for pathology. MD ABDIAZIZ Lloyd/SHIRA /10:48 PM /12:12 PM
[2017-02-05] MEDS ORDERED: guaiFENesin/CODEINE SYRUP 200 MG/20 MG/10 ML CUP PO PRN (12:30)
[2017-02-05] MEDS ORDERED: BENZONATATE 100 MG CAP PO PRN (12:30)
--- NOTE | 2017-02-05 12:34 | HHI.PR ---
Subjective Remarks Consulted by critical care medicine for transfer of care and medical management. Chart reviewed. Events noted developed A. fib RVR overnight denies chest pain, palpitations, shortness of breath and dizziness. He does complain of productive cough of brown phlegm. Cardiology recommended beta mega and anticoagulation. Patient refuses to be anticoagulated but okay with aspirin if cleared by general surgery. Telemetry shows A. fib with controlled ventricular response. Discussed with RN Objective Vitals Vital Signs Date Time Temp Pulse Resp B/P Pulse Ox O2 Delivery O2 Flow Rate FiO2 02/05/17 10:00 122 02/05/17 08:42 96 Nasal Cannula 3.00 02/05/17 08:00 116 02/05/17 07:00 Nasal Cannula 2.00 02/05/17 06:00 122 02/05/17 06:00 122 20 123/73 92 02/05/17 05:00 125 20 159/77 97 02/05/17 05:00 125 02/05/17 04:00 99.0 98 20 149/73 96 02/05/17 04:00 98 02/05/17 03:00 98 02/05/17 03:00 98 20 156/84 92 02/05/17 02:00 99 20 158/89 97 02/05/17 02:00 95 02/05/17 01:00 95 02/05/17 01:00 95 20 142/71 97 02/05/17 00:00 101 02/05/17 00:00 98.9 95 20 133/65 94 02/04/17 23:00 96 02/04/17 23:00 96 16 135/64 96 02/04/17 22:00 93 16 146/61 97 02/04/17 22:00 93 02/04/17 21:26 98 Nasal Cannula 2.00 02/04/17 21:00 94 16 131/64 98 02/04/17 21:00 94 02/04/17 20:00 92 02/04/17 20:00 Nasal Cannula 2.00 02/04/17 20:00 92 16 144/68 97 02/04/17 19:00 98.3 93 16 144/62 97 02/04/17 19:00 101 02/04/17 18:00 94 02/04/17 16:00 97.9 91 17 146/65 95 02/04/17 16:00 91 02/04/17 14:00 86 I/O 02/04/17 02/04/17 02/04/17 02/05/17 02/05/17 02/05/17 06:59 14:59 22:59 06:59 14:59 22:59 Intake Total 1021 ml 1418 ml 500 ml 1100 ml Output Total 1620 ml 325 ml 175 ml 640 ml Balance -599 ml 1093 ml 325 ml 460 ml Intake Oral 0 ml 720 ml 100 ml 100 ml IV Total 721 ml 698 ml 400 ml 1000 ml Other 300 ml Output Urine Total 1200 ml 325 ml 175 ml 640 ml Gastric Drainage Total 420 ml 0 ml Estimated Blood Loss 0 ml # Bowel Movements 0 0 0 0 Result Diagram: 02/05/1751602/05/17 0518 Imaging Last Impressions Abdomen/Pelvis CT 02/03/17 0000 Signed Impressions: Service Date/Time: Friday, February 03, 2017 16:21 - CONCLUSION: 1. Left anterior abdominal wall hernia with findings concerning for strangulated proximal loop of jejunum. No evidence for bowel infarction, perforation, or abscess. 2. Large recannulated periumbilical vein with extensive network of enlarged veins abutting the abdominal wall likely extending to the splenic or left renal vein - notable for surgical planning. This is consistent with some degree of portal hypertension although there is not significant hepatic volume loss to suggest cirrhosis. 3. Innumerable bilateral renal cysts. Multiple have enlarged slightly since 2013 with one cystic lesion in the right kidney now more hyperdense like reflecting a hemorrhagic cyst although density is indeterminate at this time. A large left renal mass previously biopsied in 2013 has also enlarged in the interval, as above. Correlation with pathology results is recommended. 4. Serpiginous left lower lobe opacity suggesting pulmonary AVM. This can be confirmed with contrast-enhanced examination. 5. Moderately distended bladder may reflect some degree of bladder outlet obstruction. This may be confirmed with a postvoid residual exam. 6. 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 7. Multiple additional ancillary findings, as above. This report was called to Mr. Quirino PA-C. Clarence Toledo MD Abdomen X-Ray 02/03/17 0000 Signed Impressions: Service Date/Time: Friday, February 03, 2017 14:34 - CONCLUSION: 1. Stool scattered throughout the colon. 2. Minimal small bowel dilatation in a nonspecific fashion. Blayne Roberson MD FACR Objective Remarks GENERAL: Well-nourished, well-developed patient on nasal cannula. SKIN: Warm and dry. HEAD: Normocephalic. EYES: No scleral icterus. No injection or drainage. NECK: Supple, trachea midline. No JVD or lymphadenopathy. CARDIOVASCULAR: Irregularly irregular without murmurs, gallops, or rubs. RESPIRATORY: Breath sounds equal bilaterally. No accessory muscle use. GASTROINTESTINAL: Abdomen soft, mildly tender to palpation in all 4 quadrants. Incision dressing CDI MUSCULOSKELETAL: No cyanosis, or edema. BACK: Nontender without obvious deformity. No CVA tenderness. EXTREMITIES: No clubbing, cyanosis NEURO: No FND Procedures PROCEDURE PERFORMED 02/03/17 1. Open repair and reduction of incarcerated incisional hernia primarily. 2. Small bowel resection. A/P Problem List: (1) Incarcerated incisional hernia ICD Code: K43.0 Status: Acute (2) Metabolic acidemia ICD Code: E87.2 Status: Acute (3) ESRD (end stage renal disease) ICD Code: N18.6 Status: Chronic Assessment and Plan Incarcerated hernia - Open incisional hernia repair with small bowel resection - DC NGT. Clear liquid diet ok per Dr. Sprague - Pain control - IV fluid hydration with bicarbonate infusion - End-stage renal disease with acidosis - Patient has been refusing hemodialysis for last 4 years - Continue supportive care. Improving acidosis - Nephrology consult - He does not want hospice at this time we'll revisit upon discharge Coronary artery disease - No acute event - Supportive care - Aspirin if okay with general surgery New onset A. fib [id number] of 4. Does not want to be on anticoagulation. TSH within normal limits. Continue Lopressor. Aspirin if okay with general surgery. Replace magnesium Urinary retention. Increase activity discontinue Cd catheter in the morning DVT GI prophylaxis - Teds SCDs - Pharmacological prophylaxis with sq heparin - Pepcid Discharge Planning Stable for transfer to telemetry. Discharge to home when ready and cleared by general surgery Enrique Cash MD Feb 05, 2017 12:34
--- NOTE | 2017-02-05 13:17 | RADRPT ---
EXAM DATE/TIME: 02/05/2017 12:38 [facility] COMPARISON: No previous studies available for comparison. INDICATIONS : Cough. MEDICAL HISTORY : Hypertension. SURGICAL HISTORY : Cholecystectomy. CABG. Hernia repair ENCOUNTER: Subsequent ACUITY: 2 days PAIN SCORE: 0/10 LOCATION: Bilateral chest FINDINGS: Small bilateral pleural effusions are noted. Bibasilar patchiness is noted consistent with pneumonia and/or atelectasis. The heart is top normal in size. Median sternotomy wires are noted status post cardiac surgery. Degenerative changes are noted within the thoracic spine. CONCLUSION: 1. Bibasilar patchiness consistent with probable pneumonia. Clinical correlation is recommended. 2. Small bilateral pleural effusions. Alfredito Amanda MD on February 05, 2017 at 12:58 Board Certified Radiologist. This report was verified electronically.
[2017-02-05] MEDS ORDERED: AZTREONAM INJ 2,000 MG in SODIUM CHLORIDE 0.9% INJ 100 ML IV SCH (14:30)
[2017-02-05] MEDS: AZTREONAM 1,000 MG/NS 100 ML IV SCH ×2 (14:38)
[2017-02-05] MEDS ORDERED: LEVOFLOXACIN 500 MG PREMIX INJ 100 ML IV SCH (15:00)
--- NOTE | 2017-02-05 15:33 | HHI.NPPN ---
Subjective History of Present Illness 86-year-old male known to me from before with past medical history of chronic kidney disease, advanced renal disease, history of possible renal tumor, chronic anemia, ischemic heart disease. He came to the hospital with complaint of left sided abdominal pain. The patient was diagnosed here with incarcerated hernia and he underwent surgery. The patient has known history of chronic kidney disease, advanced renal failure and he has a complex mass in the left kidney for which he refused to do anymore workup. Additional Remarks Patient is alert, abd. pain is better and started liquids. Review of Systems Gastrointestinal Gastrointestinal: Abdominal Pain, Nausea & Vomiting Objective Data Data 02/04/17 02/05/17 18:59 06:59 Intake Total 1418 ml 1600 ml Output Total 325 ml 815 ml Balance 1093 ml 785 ml Intake Oral 720 ml 200 ml IV Total 698 ml 1400 ml Output Urine Total 325 ml 815 ml Gastric Drainage Total 0 ml # Bowel Movements 0 0 Vital Signs Date Time Temp Pulse Resp B/P Pulse Ox O2 Delivery O2 Flow Rate FiO2 02/05/17 12:00 102 02/05/17 10:00 122 02/05/17 08:42 96 Nasal Cannula 3.00 02/05/17 08:00 116 02/05/17 07:00 Nasal Cannula 2.00 02/05/17 06:00 122 02/05/17 06:00 122 20 123/73 92 02/05/17 05:00 125 20 159/77 97 02/05/17 05:00 125 02/05/17 04:00 99.0 98 20 149/73 96 02/05/17 04:00 98 02/05/17 03:00 98 02/05/17 03:00 98 20 156/84 92 02/05/17 02:00 99 20 158/89 97 02/05/17 02:00 95 02/05/17 01:00 95 02/05/17 01:00 95 20 142/71 97 02/05/17 00:00 101 02/05/17 00:00 98.9 95 20 133/65 94 02/04/17 23:00 96 02/04/17 23:00 96 16 135/64 96 02/04/17 22:00 93 16 146/61 97 02/04/17 22:00 93 02/04/17 21:26 98 Nasal Cannula 2.00 02/04/17 21:00 94 16 131/64 98 02/04/17 21:00 94 02/04/17 20:00 92 02/04/17 20:00 Nasal Cannula 2.00 02/04/17 20:00 92 16 144/68 97 02/04/17 19:00 98.3 93 16 144/62 97 02/04/17 19:00 101 02/04/17 18:00 94 02/04/17 16:00 97.9 91 17 146/65 95 02/04/17 16:00 91 -: 02/05/17 0517 02/05/17 0518 Physical Exam General Appearance: No Acute Distress, Comfortable Eyes Eye Exam: Pupils Equal Throat Throat Exam: Oral Mucosa [place] & Moist Neck Neck Exam: Neck Supple Pulmonary Resp Exam: Breath Sounds Equal, No Distress, Rhonchi, Decreased Bases Cardiology CV Exam: Regular, Normal Sinus Rhythm Gastrointestinal/Abdomen GI Exam: Soft, Distended Extremeties Extremities Exam: Trace Edema Neurologic Neuro Exam: Alert, Awake, Oriented Psychiatric Psych Exam: Appropriate Responses Assessment/Plan Assessment Summary: Hypertension, CKD Stage IV Electrolyte Assessment: Hypocalcemia, Metabolic Acidosis Problem List: (1) Incarcerated incisional hernia (2) Acidosis (3) Metabolic acidemia (4) Hypocalcemia (5) Renal failure Plan Patient has advance renal disease. The GFR is well below 10 ml/min. He does not want HD. Abd. surgery was un eventful. Creatinine is same, acidosis improving. Continue IVF with NaHco3. Avoid Nephrotoxins. Problem Qualifiers (1) Renal failure: Qualified Code: N18.5 - Stage 5 chronic kidney disease not on chronic dialysis Nettie Victoria MD Feb 05, 2017 15:33
[2017-02-05] MEDS: ASPIRIN EC 81 MG TABEC PO SCH (18:15)
[2017-02-05] MEDS: guaiFENesin E.R. 600 MG TAB PO SCH (20:49)
[2017-02-06] VITALS (9 sets, daily range): BP systolic 113–143; BP diastolic 60–75; PULSE 82–97; RESP 17–20; TEMP 97.3–98.8; O2SAT 91–94
[2017-02-06] MEDS: CHLORHEXIDINE GLUCONATE 2 % 1 PACK (2 CLOTHS) TOP SCH (03:10)
[2017-02-06] MEDS: SODIUM BICARBONATE 8.4% INJ 100 MEQ in DEXTROSE 5% IN WATE 1000ML INJ 1,000 ML IV SCH ×2 (04:35)
[2017-02-06 07:58] LABS: AUTOMATED NEUTROPHIL # 6.4 TH/MM3 (1.8-7.7); BASOPHIL % 0.1 % (0.0-2.0); EOSINOPHIL % 0.2 % (0.0-4.0); HEMATOCRIT 25.8 % (39.0-51.0); HEMO FLAGS DIFF FINAL; LYMPH % 11.5 % (9.0-44.0); LYMPHOCYTE # 0.9 TH/MM3 (1.0-4.8); MEAN CELL VOLUME 96.1 FL (80.0-100.0); MEAN CORPUSCULAR HEMOGLOBIN 31.1 PG (27.0-34.0); MEAN CORPUSCULAR HGB CONC 32.4 % (32.0-36.0); MONO % 7.3 % (0.0-8.0); NEUT % 80.9 % (16.0-70.0); PLATELET COUNT 100 TH/MM3 (150-450); RED BLOOD COUNT 2.68 MIL/MM3 (4.50-5.90); RED CELL DISTRIBUTION WIDTH 14.7 % (11.6-17.2); WHITE BLOOD COUNT 7.9 TH/MM3 (4.0-11.0)
[2017-02-06 08:26] LABS: BICARBONATE 20.2 MEQ/L (21.0-32.0); MAGNESIUM 1.7 MG/DL (1.5-2.5); POTASSIUM 3.6 MEQ/L (3.5-5.1)
[2017-02-06 08:44] LABS: CALCIUM-PROTEIN CORRECTED 7.5 MG/DL (8.5-10.1); HDL CHOLESTEROL 58.6 MG/DL (40.0-60.0)
[2017-02-06] MEDS: AZTREONAM 1,000 MG/NS 100 ML IV SCH ×6 (09:24→17:26)
[2017-02-06] MEDS: FAMOTIDINE 20 MG TAB PO SCH ×2 (09:25→21:30)
[2017-02-06] MEDS: SODIUM CHLORIDE 0.9% FLUSH 10 ML FLUSH SCH ×2 (09:25→21:31)
[2017-02-06] MEDS: ASPIRIN EC 81 MG TABEC PO SCH (09:25)
[2017-02-06] MEDS: CALCIUM ACETATE 667 MG CAP PO SCH ×3 (09:25→17:27)
[2017-02-06] MEDS: DOCUSATE SODIUM 50 MG/SENNA 8.6 MG TAB PO SCH ×2 (09:25→21:00)
[2017-02-06] MEDS: METOPROLOL TARTRATE 25 MG TAB PO SCH ×2 (09:25→21:30)
[2017-02-06] MEDS: HEPARIN SODIUM - SQ 10,000 UNITS/ML VIAL SQ SCH ×2 (09:26→21:31)
[2017-02-06] MEDS: guaiFENesin E.R. 600 MG TAB PO SCH ×2 (09:26→21:30)
[2017-02-06] MEDS: SODIUM BICARBONATE 650 MG TAB PO SCH ×3 (09:26→17:27)
--- NOTE | 2017-02-06 09:55 | HHI.NPPN ---
Subjective History of Present Illness 86 year old with known CKD, CAD, underwent open hernia repair. His renal function is worse, he has refused HD so far. Objective Data Data 02/05/17 02/06/17 19:00 07:00 Intake Total 720 ml Balance 720 ml IV Total 720 ml Vital Signs Date Time Temp Pulse Resp B/P Pulse Ox O2 Delivery O2 Flow Rate FiO2 02/06/17 04:00 98.6 97 20 133/72 92 02/06/17 00:00 98.8 83 20 113/60 92 02/05/17 21:04 94 Nasal Cannula 2.00 02/05/17 20:00 98.8 94 20 127/57 92 02/05/17 20:00 Nasal Cannula 2.00 02/05/17 20:00 94 02/05/17 18:43 Nasal Cannula 2.00 02/05/17 17:25 98.4 95 20 143/86 92 02/05/17 16:00 86 02/05/17 14:00 78 02/05/17 12:00 102 02/05/17 10:00 122 -: 02/06/17 0714 02/06/17 0714 Physical Exam General Appearance: Well Developed Throat Throat Exam: Oral Mucosa [place] & Moist Pulmonary Resp Exam: Clear Bilaterally Cardiology CV Exam: Regular Gastrointestinal/Abdomen GI Exam: Soft Musculoskeletal MS Exam: Joints Intact Extremeties Extremities Exam: No Edema Neurologic Neuro Exam: Moving All Extremities Assessment/Plan Problem List: (1) ESRD (end stage renal disease) Plan: needs to initiate dialysis, but he is refusing. Patient understands the consequences of this decision including . (2) Incarcerated incisional hernia Plan: s/p surgery. (3) Acidosis Plan: Continue Sodium bicarbonate. Harman Lincoln MD Feb 06, 2017 09:55
[2017-02-06] MEDS ORDERED: POTASSIUM CHLORIDE 10 MEQ CAP PO ONE (10:00)
--- NOTE | 2017-02-06 10:51 | PD.CARD.PN ---
Subjective Subjective Remarks alert in nad Objective Vital Signs / I&O Vital Signs Date Time Temp Pulse Resp B/P Pulse Ox O2 Delivery O2 Flow Rate FiO2 02/06/17 08:00 97.4 88 19 136/63 93 02/06/17 04:00 98.6 97 20 133/72 92 02/06/17 00:00 98.8 83 20 113/60 92 02/05/17 21:04 94 Nasal Cannula 2.00 02/05/17 20:00 98.8 94 20 127/57 92 02/05/17 20:00 Nasal Cannula 2.00 02/05/17 20:00 94 02/05/17 18:43 Nasal Cannula 2.00 02/05/17 17:25 98.4 95 20 143/86 92 02/05/17 16:00 86 02/05/17 14:00 78 02/05/17 12:00 102 I/O 02/05/17 02/05/17 02/05/17 02/06/17 02/06/17 02/06/17 07:00 15:00 23:00 07:00 15:00 23:00 Intake Total 1100 ml 720 ml Output Total 640 ml Balance 460 ml 720 ml Intake Oral 100 ml IV Total 1000 ml 720 ml Output Urine Total 640 ml # Bowel Movements 0 Laboratory Laboratory Tests Test 02/06/17 07:14 White Blood Count 7.9 TH/MM3 Red Blood Count 2.68 MIL/MM3 Hemoglobin 8.3 GM/DL Hematocrit 25.8 % Mean Corpuscular Volume 96.1 FL Mean Corpuscular Hemoglobin 31.1 PG Mean Corpuscular Hemoglobin 32.4 % Concent Red Cell Distribution Width 14.7 % Platelet Count 100 TH/MM3 Mean Platelet Volume 9.5 FL Neutrophils (%) (Auto) 80.9 % Lymphocytes (%) (Auto) 11.5 % Monocytes (%) (Auto) 7.3 % Eosinophils (%) (Auto) 0.2 % Basophils (%) (Auto) 0.1 % Neutrophils # (Auto) 6.4 TH/MM3 Lymphocytes # (Auto) 0.9 TH/MM3 Monocytes # (Auto) 0.6 TH/MM3 Eosinophils # (Auto) 0.0 TH/MM3 Basophils # (Auto) 0.0 TH/MM3 CBC Comment DIFF FINAL Differential Comment Sodium Level 138 MEQ/L Potassium Level 3.6 MEQ/L Chloride Level 106 MEQ/L Carbon Dioxide Level 20.2 MEQ/L Anion Gap 12 MEQ/L Blood Urea Nitrogen 74 MG/DL Creatinine 7.20 MG/DL Estimat Glomerular Filtration 7 ML/MIN Rate Random Glucose 94 MG/DL Calcium Level 6.9 MG/DL Protein Corrected Calcium 7.5 MG/DL Magnesium Level 1.7 MG/DL Total Protein 5.9 GM/DL Triglycerides Level 63 MG/DL Cholesterol Level 126 MG/DL LDL Cholesterol 55 MG/DL HDL Cholesterol 58.6 MG/DL Cholesterol/HDL Ratio 2.15 RATIO Assessment and Plan Assessment and Plan patient refuses cardiology consult and follow up in front of family and Dr Cash, will sign off Mike Clark MD Feb 06, 2017 10:51
--- NOTE | 2017-02-06 11:13 | HHI.PR ---
Subjective Subjective Notes had BM. Dc out this AM , no void yet. Wants to eat. Daughter at bedside, pt awake and alert. Objective Vitals/I&O Vital Signs Date Time Temp Pulse Resp B/P Pulse Ox O2 Delivery O2 Flow Rate FiO2 02/06/17 08:00 97.4 88 19 136/63 93 02/05/17 21:04 Nasal Cannula 2.00 Labs Laboratory Tests Test 02/06/17 07:14 White Blood Count 7.9 Red Blood Count 2.68 Hemoglobin 8.3 Hematocrit 25.8 Mean Corpuscular Volume 96.1 Mean Corpuscular Hemoglobin 31.1 Mean Corpuscular Hemoglobin 32.4 Concent Red Cell Distribution Width 14.7 Platelet Count 100 Mean Platelet Volume 9.5 Neutrophils (%) (Auto) 80.9 Lymphocytes (%) (Auto) 11.5 Monocytes (%) (Auto) 7.3 Eosinophils (%) (Auto) 0.2 Basophils (%) (Auto) 0.1 Neutrophils # (Auto) 6.4 Lymphocytes # (Auto) 0.9 Monocytes # (Auto) 0.6 Eosinophils # (Auto) 0.0 Basophils # (Auto) 0.0 CBC Comment DIFF FINAL Differential Comment Sodium Level 138 Potassium Level 3.6 Chloride Level 106 Carbon Dioxide Level 20.2 Anion Gap 12 Blood Urea Nitrogen 74 Creatinine 7.20 Estimat Glomerular Filtration 7 Rate Random Glucose 94 Calcium Level 6.9 Protein Corrected Calcium 7.5 Magnesium Level 1.7 Total Protein 5.9 Triglycerides Level 63 Cholesterol Level 126 LDL Cholesterol 55 HDL Cholesterol 58.6 Cholesterol/HDL Ratio 2.15 Abdomen: Non-distended, Non-tender, Other (incision with minimal drainage, serous, no erythema.) A/P Assessment and Plan postop open repair strangulated incisional hernia, SBR. Bowel function intact. Has CKD, will not urinate but maybe once a day. D/W pt, daughter and Dr Cash. DC IVF, change abx to oral, advance diet to regular. Navneet Blackwell MD Feb 06, 2017 11:13
--- NOTE | 2017-02-06 11:21 | HHI.PR ---
Subjective Remarks Follow-up A. fib. Telemetry shows sinus rhythm. Denies chest pain, palpitations and shortness of breath. Refuses to see svp business development because he does not want further workup similar to his kidney condition. Discussed with neurosurgery, advance diet to regular and discontinue IV fluids. Patient still with productive cough with pinkish phlegm. Denies shortness of breath. Seen with family. Discussed with RN Objective Vitals Vital Signs Date Time Temp Pulse Resp B/P Pulse Ox O2 Delivery O2 Flow Rate FiO2 02/06/17 08:00 97.4 88 19 136/63 93 02/06/17 04:00 98.6 97 20 133/72 92 02/06/17 00:00 98.8 83 20 113/60 92 02/05/17 21:04 94 Nasal Cannula 2.00 02/05/17 20:00 98.8 94 20 127/57 92 02/05/17 20:00 Nasal Cannula 2.00 02/05/17 20:00 94 02/05/17 18:43 Nasal Cannula 2.00 02/05/17 17:25 98.4 95 20 143/86 92 02/05/17 16:00 86 02/05/17 14:00 78 02/05/17 12:00 102 I/O 02/05/17 02/05/17 02/05/17 02/06/17 02/06/17 02/06/17 06:59 14:59 22:59 06:59 14:59 22:59 Intake Total 1100 ml 720 ml Output Total 640 ml Balance 460 ml 720 ml Intake Oral 100 ml IV Total 1000 ml 720 ml Output Urine Total 640 ml # Bowel Movements 0 Result Diagram: 02/06/17 0714 02/06/17 0714 Imaging Last Impressions Chest X-Ray 02/05/17 0000 Signed Impressions: Service Date/Time: Sunday, February 05, 2017 12:38 - CONCLUSION: 1. Bibasilar patchiness consistent with probable pneumonia. Clinical correlation is recommended. 2. Small bilateral pleural effusions. Alfredito Amanda MD Abdomen/Pelvis CT 02/03/17 0000 Signed Impressions: Service Date/Time: Friday, February 03, 2017 16:21 - CONCLUSION: 1. Left anterior abdominal wall hernia with findings concerning for strangulated proximal loop of jejunum. No evidence for bowel infarction, perforation, or abscess. 2. Large recannulated periumbilical vein with extensive network of enlarged veins abutting the abdominal wall likely extending to the splenic or left renal vein - notable for surgical planning. This is consistent with some degree of portal hypertension although there is not significant hepatic volume loss to suggest cirrhosis. 3. Innumerable bilateral renal cysts. Multiple have enlarged slightly since 2013 with one cystic lesion in the right kidney now more hyperdense like reflecting a hemorrhagic cyst although density is indeterminate at this time. A large left renal mass previously biopsied in 2013 has also enlarged in the interval, as above. Correlation with pathology results is recommended. 4. Serpiginous left lower lobe opacity suggesting pulmonary AVM. This can be confirmed with contrast-enhanced examination. 5. Moderately distended bladder may reflect some degree of bladder outlet obstruction. This may be confirmed with a postvoid residual exam. 6. 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 7. Multiple additional ancillary findings, as above. This report was called to Mr. Quirino PA-C. Clarence Toledo MD Abdomen X-Ray 02/03/17 0000 Signed Impressions: Service Date/Time: Friday, February 03, 2017 14:34 - CONCLUSION: 1. Stool scattered throughout the colon. 2. Minimal small bowel dilatation in a nonspecific fashion. Blayne Roberson MD FACR Objective Remarks GENERAL: Well-nourished, well-developed patient on nasal cannula. SKIN: Warm and dry. HEAD: Normocephalic. EYES: No scleral icterus. No injection or drainage. NECK: Supple, trachea midline. No JVD or lymphadenopathy. CARDIOVASCULAR: Regular rate and rhythm without murmurs, gallops, or rubs. RESPIRATORY: Breath sounds equal bilaterally. No accessory muscle use. Mild expiratory wheezes GASTROINTESTINAL: Abdomen soft, mildly tender to palpation in all 4 quadrants. Incision dressing CDI MUSCULOSKELETAL: No cyanosis, or edema. BACK: Nontender without obvious deformity. No CVA tenderness. EXTREMITIES: No clubbing, cyanosis NEURO: No FND Procedures PROCEDURE PERFORMED 02/03/17 1. Open repair and reduction of incarcerated incisional hernia primarily. 2. Small bowel resection. A/P Problem List: (1) Incarcerated incisional hernia ICD Code: K43.0 Status: Acute (2) Metabolic acidemia ICD Code: E87.2 Status: Acute (3) ESRD (end stage renal disease) ICD Code: N18.6 Status: Chronic Assessment and Plan Incarcerated hernia. - Open incisional hernia repair with small bowel resection. Stable postoperatively - DC NGT. Advance to regular per general surgery - Pain control - Discontinue IV fluid hydration with bicarbonate infusion - End-stage renal disease with acidosis - Patient has been refusing hemodialysis for last 4 years - Continue supportive care. Improving acidosis - Nephrology consult - He does not want hospice at this time we'll revisit upon discharge New onset A. fib [id number] of 4. Does not want to be on anticoagulation. TSH within normal limits. Continue Lopressor and aspirin. Telemetry shows sinus rhythm Urinary retention. Increase activity discontinued Dc catheter this morning. We'll monitor Probable pneumonia. Chest x-ray image interpreted by me. Started on IV aztreonam and IV Levaquin patient allergic to penicillin. He is doing well switch to by mouth adjust to renal dosing. Nebulizations Elevated troponin secondary to above. Again patient does not want further workup. History of coronary artery disease on aspirin and beta mega DVT GI prophylaxis - Teds SCDs - Pharmacological prophylaxis with sq heparin - Pepcid Discharge Planning Possible discharge in the morning Enrique Cash MD Feb 06, 2017 11:21
[2017-02-06] MEDS ORDERED: ASPI-99 PO (11:25)
[2017-02-06] MEDS ORDERED: METO25TA3 PO (11:25)
[2017-02-06] MEDS ORDERED: LEVA250T14 PO (11:25)
[2017-02-06] MEDS ORDERED: VENTAER INH (11:25)
--- NOTE | 2017-02-06 11:26 | HHI.DCPOC ---
Discharge Care Plan Diagnosis: (1) Incarcerated incisional hernia Your Health Problems Are: Difficulty with ADL Exercise Tolerance Goals to Promote Your Health * To prevent worsening of your condition and complications * To maintain your health at the optimal level Directions to Meet Your Goals Take your medications as prescribed Follow your dietary instruction Follow activity as directed Keep your appointments as scheduled Take your immunizations and boosters as scheduled If your symptoms worsen call your PCP, if no PCP go to Urgent Care Center or Emergency Room Smoking is Dangerous to Your Health. Avoid second hand smoke Call the 24-hour hour crisis hotline for domestic abuse at Enrique Cash MD Feb 06, 2017 11:26
[2017-02-06] MEDS ORDERED: OXYGENDME NAS.CANULA (11:28)
[2017-02-06] MEDS: RESP: ALBUTEROL 0.63 MG/3 ML NEB (PRN) NEB ×2 (11:42→17:36)
[2017-02-07] VITALS (10 sets, daily range): BP systolic 121–160; BP diastolic 65–76; PULSE 76–90; RESP 20–21; TEMP 97.9–98.6; O2SAT 90–93
[2017-02-07] MEDS: AZTREONAM 1,000 MG/NS 100 ML IV SCH ×2 (00:58)
[2017-02-07] MEDS: CHLORHEXIDINE GLUCONATE 2 % 1 PACK (2 CLOTHS) TOP SCH (03:30)
--- NOTE | 2017-02-07 08:05 | HHI.FF ---
Face to Face Verification Diagnosis: (1) Renal failure (2) Pneumonia (3) Incarcerated hernia of abdominal cavity Home Health Nursing Order: Oxygen administration education Wound care and dressing changes Nursing assessment with vital signs Dc catheter maintenance I have seen patient Navneet Berger on 02/07/17. My clinical findings support the need for the requested home health care services because: Deconditioned w/ increased weakness I certify that my clinical findings support that this patient is homebound because: Need for psychosocial assistance Enrique Cash MD Feb 07, 2017 08:05
[2017-02-07] MEDS: guaiFENesin E.R. 600 MG TAB PO SCH ×2 (09:32→19:55)
[2017-02-07] MEDS: METOPROLOL TARTRATE 25 MG TAB PO SCH ×2 (09:33→20:07)
[2017-02-07] MEDS: DOCUSATE SODIUM 50 MG/SENNA 8.6 MG TAB PO SCH ×2 (09:33→19:55)
[2017-02-07] MEDS: CALCIUM ACETATE 667 MG CAP PO SCH ×3 (09:33→18:26)
[2017-02-07] MEDS: FAMOTIDINE 20 MG TAB PO SCH ×2 (09:33→19:55)
[2017-02-07] MEDS: ASPIRIN EC 81 MG TABEC PO SCH (09:33)
[2017-02-07] MEDS: SODIUM BICARBONATE 650 MG TAB PO SCH ×3 (09:33→18:26)
[2017-02-07] MEDS: HEPARIN SODIUM - SQ 10,000 UNITS/ML VIAL SQ SCH ×2 (09:34→19:56)
[2017-02-07] MEDS: SODIUM CHLORIDE 0.9% FLUSH 10 ML FLUSH SCH ×2 (09:34→19:56)
[2017-02-07] MEDS: RESP: ALBUTEROL 0.63 MG/3 ML NEB (PRN) NEB (10:01)
--- NOTE | 2017-02-07 10:18 | HHI.PR ---
Subjective Remarks Follow-up hernia repair. Tolerating regular diet. Required straight catheterization 2 overnight. Discussed with RN and case management, stable for discharge pending arrangements of home health care visiting nurse for Dc care and home oxygen Objective Vitals Vital Signs Date Time Temp Pulse Resp B/P Pulse Ox O2 Delivery O2 Flow Rate FiO2 02/07/17 10:03 92 Nasal Cannula 3.00 02/07/17 08:00 98.1 90 20 160/76 91 02/07/17 04:00 Nasal Cannula 3.00 Humidified 02/07/17 04:00 98.6 85 20 129/73 90 02/07/17 00:00 Nasal Cannula 3.00 Humidified 02/07/17 00:00 97.9 82 20 152/74 92 02/06/17 22:00 Nasal Cannula 3.00 Humidified 02/06/17 20:15 94 Nasal Cannula 2.00 02/06/17 20:00 Nasal Cannula 4.00 Humidified 02/06/17 20:00 93 02/06/17 20:00 97.9 87 18 134/72 92 02/06/17 19:05 Humidified 4.00 02/06/17 19:00 Nasal Cannula 6.00 Humidified 02/06/17 16:00 Nasal Cannula 2.00 02/06/17 16:00 97.3 86 20 139/75 91 02/06/17 12:00 Nasal Cannula 2.00 02/06/17 12:00 97.9 82 17 143/68 94 I/O 02/06/17 02/06/17 02/06/17 02/07/17 02/07/17 02/07/17 07:00 15:00 23:00 07:00 15:00 23:00 Intake Total 1120 ml 240 ml 460 ml Output Total 700 ml Balance 1120 ml 240 ml -240 ml Intake Oral 1120 ml 240 ml 360 ml IV Total 100 ml Output Urine Total 700 ml Bladder Scan Volume Amount 800 ml 500 ml 800 ml # Voids 0 # Bowel Movements 2 0 1 Result Diagram: 02/06/17 0714 02/06/17 0714 Imaging Last Impressions Chest X-Ray 02/05/17 0000 Signed Impressions: Service Date/Time: Sunday, February 05, 2017 12:38 - CONCLUSION: 1. Bibasilar patchiness consistent with probable pneumonia. Clinical correlation is recommended. 2. Small bilateral pleural effusions. Alfredito Amanda MD Abdomen/Pelvis CT 02/03/17 0000 Signed Impressions: Service Date/Time: Friday, February 03, 2017 16:21 - CONCLUSION: 1. Left anterior abdominal wall hernia with findings concerning for strangulated proximal loop of jejunum. No evidence for bowel infarction, perforation, or abscess. 2. Large recannulated periumbilical vein with extensive network of enlarged veins abutting the abdominal wall likely extending to the splenic or left renal vein - notable for surgical planning. This is consistent with some degree of portal hypertension although there is not significant hepatic volume loss to suggest cirrhosis. 3. Innumerable bilateral renal cysts. Multiple have enlarged slightly since 2013 with one cystic lesion in the right kidney now more hyperdense like reflecting a hemorrhagic cyst although density is indeterminate at this time. A large left renal mass previously biopsied in 2013 has also enlarged in the interval, as above. Correlation with pathology results is recommended. 4. Serpiginous left lower lobe opacity suggesting pulmonary AVM. This can be confirmed with contrast-enhanced examination. 5. Moderately distended bladder may reflect some degree of bladder outlet obstruction. This may be confirmed with a postvoid residual exam. 6. 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 7. Multiple additional ancillary findings, as above. This report was called to Mr. Quirino PA-C. Clarence Toledo MD Abdomen X-Ray 02/03/17 0000 Signed Impressions: Service Date/Time: Friday, February 03, 2017 14:34 - CONCLUSION: 1. Stool scattered throughout the colon. 2. Minimal small bowel dilatation in a nonspecific fashion. Blayne Roberson MD FACR Objective Remarks GENERAL: Well-nourished, well-developed patient on nasal cannula 3L. SKIN: Warm and dry. HEAD: Normocephalic. EYES: No scleral icterus. No injection or drainage. NECK: Supple, trachea midline. No JVD or lymphadenopathy. CARDIOVASCULAR: Regular rate and rhythm without murmurs, gallops, or rubs. RESPIRATORY: Breath sounds equal bilaterally. No accessory muscle use. Mild expiratory wheezes GASTROINTESTINAL: Abdomen soft, mildly tender to palpation in all 4 quadrants. Incision dressing CDI MUSCULOSKELETAL: No cyanosis, or edema. BACK: Nontender without obvious deformity. No CVA tenderness. EXTREMITIES: No clubbing, cyanosis NEURO: Alert and oriented. No focal deficits Procedures PROCEDURE PERFORMED 02/03/17 1. Open repair and reduction of incarcerated incisional hernia primarily. 2. Small bowel resection. A/P Problem List: (1) Incarcerated incisional hernia ICD Code: K43.0 Status: Acute (2) Metabolic acidemia ICD Code: E87.2 Status: Acute (3) ESRD (end stage renal disease) ICD Code: N18.6 Status: Chronic Assessment and Plan Incarcerated hernia. - Open incisional hernia repair with small bowel resection. Stable postoperatively - Advanced to regular per general surgery - Pain control - Discontinued IV fluid hydration with bicarbonate infusion - End-stage renal disease with acidosis - Patient has been refusing hemodialysis for last 4 years - Continue supportive care. Improving acidosis - Nephrology consult - He does not want hospice at this time we'll revisit upon discharge New onset A. fib [id number] of 4. Does not want to be on anticoagulation. TSH within normal limits. Continue Lopressor and aspirin. Telemetry shows sinus rhythm Urinary retention. Increase activity reinsert Dc catheter. Flomax. We'll monitor Probable pneumonia. Chest x-ray image interpreted by me. Switch IV aztreonam and IV Levaquin to by mouth Levaquin. Nebulizations Elevated troponin secondary to above. Again patient does not want further workup. History of coronary artery disease on aspirin and beta mega DVT GI prophylaxis - Teds SCDs - Pharmacological prophylaxis with sq heparin - Pepcid Discharge Planning Stable for discharge pending arrangements of home health care visiting nurse for Dc care and home oxygen Enrique Cash MD Feb 07, 2017 10:18
--- NOTE | 2017-02-07 10:20 | HHI.DS ---
Discharge Summary Admission Date Feb 03, 2017 at 18:32 Discharge Date: Feb 08, 2017 Admitting Diagnosis Incarcerated abdominal hernia, Acidosis. (1) Incarcerated incisional hernia ICD Code: K43.0 Diagnosis: Principal (2) Metabolic acidemia ICD Code: E87.2 Diagnosis: Principal (3) ESRD (end stage renal disease) ICD Code: N18.6 Diagnosis: Secondary Procedures PROCEDURE PERFORMED 02/03/17 1. Open repair and reduction of incarcerated incisional hernia primarily. 2. Small bowel resection. Brief History - From Admission 86-year-old male presents for evaluation of severe abdominal pain. Per patient has had this since this morning. Per patient he was sitting when the pain started. Patient has a history of renal carcinoma and end-stage renal disease however he's been refusing dialysis for last 4 years. CAT scan of the abdomen revealed the incarcerated hernia. He has been evaluated by a surgeon in the emergency department and now is admitted to ICU. CBC/BMP: 02/06/17 0714 02/06/17 0714 Significant Findings Laboratory Tests Test 02/04/17 02/04/17 02/04/17 02/05/17 14:20 15:39 17:09 05:17 Blood Gas HCO3 11 mmol/L 13 mmol/L (22-26) (22-26) Blood Gas Base Excess -15.9 mmol/L -12.9 mmol/L (-2-2) (-2-2) Arterial Blood pH 7.20 7.27 (7.380-7.420) (7.380-7.420) Arterial Blood Partial 29 mmHg (38-42) 28 mmHg (38-42) Pressure CO2 Arterial Blood Oxygen Content 11.9 Vol % 10.7 Vol % (12.0-20.0) (12.0-20.0) Blood Gas Hemoglobin 9.0 G/DL 8.2 G/DL (12.0-16.0) (12.0-16.0) Sodium Level 149 MEQ/L (136-145) Chloride Level 122 MEQ/L (98-107) Carbon Dioxide Level 13.6 MEQ/L (21.0-32.0) Blood Urea Nitrogen 82 MG/DL (7-18) Creatinine 7.52 MG/DL (0.60-1.30) Estimat Glomerular Filtration 7 ML/MIN (>89) Rate Lactic Acid Level 2.8 mmol/L (0.4-2.0) Calcium Level 7.1 MG/DL (8.5-10.1) Protein Corrected Calcium 7.6 MG/DL (8.5-10.1) Aspartate Amino Transf 47 U/L (15-37) (AST/SGOT) Total Protein 6.1 GM/DL (6.4-8.2) Albumin 2.9 GM/DL (3.4-5.0) Red Blood Count 2.64 MIL/MM3 (4.50-5.90) Hemoglobin 8.2 GM/DL (13.0-17.0) Hematocrit 25.3 % (39.0-51.0) Platelet Count 92 TH/MM3 (150-450) Neutrophils (%) (Auto) 78.1 % (16.0-70.0) Monocytes (%) (Auto) 9.1 % (0.0-8.0) Lymphocytes # (Auto) 0.7 TH/MM3 (1.0-4.8) Platelet Estimate LOW (NORMAL) Ovalocytes 1+ (NORMAL) B-Type Natriuretic Peptide 909 PG/ML (0-100) Test 02/05/17 02/06/17 05:18 07:14 Sodium Level 147 MEQ/L (136-145) Chloride Level 116 MEQ/L (98-107) Carbon Dioxide Level 19.5 MEQ/L 20.2 MEQ/L (21.0-32.0) (21.0-32.0) Blood Urea Nitrogen 74 MG/DL (7-18) 74 MG/DL (7-18) Creatinine 7.01 MG/DL 7.20 MG/DL (0.60-1.30) (0.60-1.30) Estimat Glomerular Filtration 8 ML/MIN (>89) 7 ML/MIN (>89) Rate Calcium Level 7.1 MG/DL 6.9 MG/DL (8.5-10.1) (8.5-10.1) Protein Corrected Calcium 7.6 MG/DL 7.5 MG/DL (8.5-10.1) (8.5-10.1) Magnesium Level 1.3 MG/DL (1.5-2.5) Troponin I 0.20 NG/ML (0.02-0.05) Total Protein 6.1 GM/DL 5.9 GM/DL (6.4-8.2) (6.4-8.2) Albumin 2.9 GM/DL (3.4-5.0) Red Blood Count 2.68 MIL/MM3 (4.50-5.90) Hemoglobin 8.3 GM/DL (13.0-17.0) Hematocrit 25.8 % (39.0-51.0) Platelet Count 100 TH/MM3 (150-450) Neutrophils (%) (Auto) 80.9 % (16.0-70.0) Lymphocytes # (Auto) 0.9 TH/MM3 (1.0-4.8) PE at Discharge GENERAL: Well-nourished, well-developed patient on nasal cannula 3L. SKIN: Warm and dry. HEAD: Normocephalic. EYES: No scleral icterus. No injection or drainage. NECK: Supple, trachea midline. No JVD or lymphadenopathy. CARDIOVASCULAR: Regular rate and rhythm without murmurs, gallops, or rubs. RESPIRATORY: Breath sounds equal bilaterally. No accessory muscle use. Mild expiratory wheezes GASTROINTESTINAL: Abdomen soft, mildly tender to palpation in all 4 quadrants. Incision dressing CDI MUSCULOSKELETAL: No cyanosis, or edema. BACK: Nontender without obvious deformity. No CVA tenderness. EXTREMITIES: No clubbing, cyanosis NEURO: Alert and oriented. No focal deficits Transfer Summary 86-year-old male presents for evaluation of severe abdominal pain. Per patient has had this since this morning. Per patient he was sitting when the pain started. Patient has a history of renal carcinoma and end-stage renal disease however he's been refusing dialysis for last 4 years. CAT scan of the abdomen revealed the incarcerated hernia. He has been evaluated by a surgeon in the emergency department and now is admitted to ICU. 02/04/17: s/p open incisional hernia repair with small bowel resection. Currently , feels ok. remains in metabolic acidosis. Bicarb gtt started. Patient refuses dialysis, even in the event of life-threatening hyperkalemia. Hospital Course Incarcerated hernia. - Open incisional hernia repair with small bowel resection. Stable postoperatively - Advanced to regular per general surgery - Pain control - Discontinued IV fluid hydration with bicarbonate infusion - Developed transient right upper quadrant pain 02/07 secondary to ileus. Abdominal x-ray performed. Resolved denies any pain and he is stooling End-stage renal disease with acidosis - Patient has been refusing hemodialysis for last 4 years - Continue supportive care. Improving acidosis - Nephrology consult - He does not want hospice at this time we'll revisit upon discharge New onset A. fib [id number] of 4. Does not want to be on anticoagulation. TSH within normal limits. Continue Lopressor and aspirin. Telemetry shows sinus rhythm Urinary retention. Increase activity reinsert Dc catheter. Flomax. We'll monitor Probable pneumonia. Chest x-ray image interpreted by me. Switched IV aztreonam and IV Levaquin to by mouth Levaquin. Nebulizations Elevated troponin secondary to above. Again patient does not want further workup. History of coronary artery disease on aspirin and beta mega DVT GI prophylaxis - Teds SCDs - Pharmacological prophylaxis with sq heparin - Pepcid Pt Condition on Discharge: Stable Discharge Disposition: Disch w/ Home Health Serv Discharge Time: > 30 minutes Discharge Instructions DIET: Follow Instructions for: As Tolerated, No Restrictions Activities you can perform: Regular-No Restrictions Activities to Avoid: Driving Follow up Referrals: Appointment for Follow Up - 1 Week @ hospice PCP Follow-up - 1 Week Surgical - 1 Week New Orders: X-RAY CHEST PA & LAT - 6 Weeks New Medications: Albuterol 18 GM Inh (Ventolin Hfa 18 GM Inh) 90 Mcg/Act Aer 2 PUFF INH Q4H PRN SHORTNESS OF BREATH #1 Ref 0 INHALER Oxygen (O2) (Oxygen (O2)) Device 2 LITER LUPE.CANULA CONTINUOUS Oxygen Concentrator Portable Gaseous 2 L/min via Nasal Canula Continuous For 99 months Prevent Hypoxemia #[address] (Adult Aspirin EC Low Strength) 81 Mg Tabec 81 MG PO DAILY Prevent Blood Clot #30 TAB Levofloxacin (Levaquin) 250 Mg Tablet 250 MG PO Q48H Infection #4 MG Metoprolol Tartrate (Metoprolol Tartrate) 25 Mg Tab 25 MG PO Q12HR Regulate Heart Beat #60 TAB Tamsulosin (Flomax) 0.4 Mg Cap 0.4 MG PO HS Manage Prostate Problems #30 CAP Continued Medications: Calcitriol (Calcitriol) 0.5 Mcg Cap 0.5 MCG PO DAILY Calcium Supplement #30 Ref 0 CAP Calcium Acetate (Phosphate Binder) (Calcium Acetate (Phosphate Binder)) 667 Mg Cap 667 MG PO TID Hyperphosphatemia #90 Ref 0 CAP Omeprazole (Omeprazole) 20 Mg Tab 20 MG PO DAILY #30 Ref 0 TAB Sodium Bicarbonate (Sodium Bicarbonate) 650 Mg Tab 650 MG PO TIDPC #90 Ref 0 TAB Additional Information I spent 35 minutes [id number] with the patient or on the ness discussing the patient's disposition, prognosis, and plan of care with patient's caregivers. Over half the time spent was devoted to counseling the patient regarding placement in coordinating care with caregivers and case management. Enrique Cahs MD Feb 07, 2017 10:20
[2017-02-07] MEDS ORDERED: ACETAMINOPHEN/HYDROcodone 325 MG/5 MG TAB PO PRN (14:30)
[2017-02-07] MEDS: HYDROmorphone HCL PF 1 MG/ML VIAL IV PRN ×2 (14:33→19:57)
--- NOTE | 2017-02-07 14:54 | RADRPT ---
EXAM DATE/TIME: 02/07/2017 14:30 [place] COMPARISON: ABDOMEN KUB ONLY, February 03, 2017, 14:34. INDICATIONS : Right sided abdominal pain. MEDICAL HISTORY : Hypertension. Left sided hernia. Renal failure. SURGICAL HISTORY : Cholecystectomy. Hernia repair, left side. ENCOUNTER: Initial ACUITY: 1 day PAIN SCORE: 5/10 LOCATION: Right abdomen. FINDINGS: Slightly less prominent mildly dilated small bowel loops. Air is noted throughout the colon. No gross pneumatosis or free air. Left lower quadrant surgical [place]ol[place]. Remainder of exam is unchanged. CONCLUSION: 1. Improved mild nonspecific small bowel distention in the right upper quadrant. Findings likely refl ect improved mild adynamic ileus. Clarence Toledo MD on February 07, 2017 at 14:50 Board Certified Radiologist. This report was verified electronically.
[2017-02-07] MEDS ORDERED: LEVOFLOXACIN/DEXTROSE 250 MG/50 ML IV SCH (15:00)
[2017-02-07 17:14] LABS: AUTOMATED NEUTROPHIL # 5.8 TH/MM3 (1.8-7.7); BASOPHIL % 0.3 % (0.0-2.0); EOSINOPHIL % 0.7 % (0.0-4.0); HEMATOCRIT 24.1 % (39.0-51.0); LYMPHOCYTE # 0.4 TH/MM3 (1.0-4.8); MEAN CELL VOLUME 96.4 FL (80.0-100.0); MEAN CORPUSCULAR HEMOGLOBIN 30.4 PG (27.0-34.0); MEAN CORPUSCULAR HGB CONC 31.5 % (32.0-36.0); MONO % 8.9 % (0.0-8.0); NEUT % 84.1 % (16.0-70.0); PLATELET COUNT 87 TH/MM3 (150-450); RED CELL DISTRIBUTION WIDTH 14.5 % (11.6-17.2); WHITE BLOOD COUNT 6.9 TH/MM3 (4.0-11.0)
[2017-02-07 17:16] LABS: HEMO FLAGS AUTO DIFF
[2017-02-07 17:32] LABS: BICARBONATE 20.3 MEQ/L (21.0-32.0); MAGNESIUM 1.8 MG/DL (1.5-2.5); POTASSIUM 4.2 MEQ/L (3.5-5.1)
[2017-02-07 17:35] LABS: CALCIUM-PROTEIN CORRECTED 7.7 MG/DL (8.5-10.1); TOTAL BILIRUBIN ADULT 0.4 MG/DL (0.2-1.0)
[2017-02-07 17:48] LABS: PLATELET ESTIMATE SMEAR LOW (NORMAL); PLATELET MORPHOLOGY NORMAL (NORMAL); SCAN/DIFF AUTO DIFF CONFIRMED
[2017-02-08 00:30] VITALS: BP 141/69; PULSE 71; RESP 20; TEMP 98.1; O2SAT 91
[2017-02-08] MEDS: CHLORHEXIDINE GLUCONATE 2 % 1 PACK (2 CLOTHS) TOP SCH (04:00)
[2017-02-08 04:28] VITALS: BP 120/67; PULSE 85; RESP 20; TEMP 98.7; O2SAT 91
[2017-02-08] MEDS: FAMOTIDINE 20 MG TAB PO SCH (07:39)
[2017-02-08] MEDS: guaiFENesin E.R. 600 MG TAB PO SCH (07:39)
[2017-02-08] MEDS: METOPROLOL TARTRATE 25 MG TAB PO SCH (07:39)
[2017-02-08] MEDS: DOCUSATE SODIUM 50 MG/SENNA 8.6 MG TAB PO SCH (07:40)
[2017-02-08] MEDS: CALCIUM ACETATE 667 MG CAP PO SCH ×2 (07:40→13:00)
[2017-02-08] MEDS: ASPIRIN EC 81 MG TABEC PO SCH (07:40)
[2017-02-08] MEDS: SODIUM CHLORIDE 0.9% FLUSH 10 ML FLUSH SCH (07:41)
[2017-02-08] MEDS: HEPARIN SODIUM - SQ 10,000 UNITS/ML VIAL SQ SCH (07:41)
[2017-02-08 08:00] VITALS: BP 140/77; PULSE 88; RESP 18; TEMP 98.2; O2SAT 91
[2017-02-08 08:10] VITALS: O2SAT 92
[2017-02-08 08:14] VITALS: PULSE 75
[2017-02-08] MEDS: SODIUM BICARBONATE 650 MG TAB PO SCH ×2 (10:03→13:22)
--- NOTE | 2017-02-08 10:35 | HHI.NPPN ---
Subjective History of Present Illness 86 year old with known CKD, CAD, underwent open hernia repair. His renal function is worse, he has refused HD so far. Additional Remarks Patient is alert,sitting on chair, feeling better. Review of Systems Gastrointestinal Gastrointestinal: Abdominal Pain, Nausea & Vomiting Objective Data Data 02/07/17 02/08/17 19:00 07:00 Intake Total 460 ml 705 ml Output Total 125 ml 625 ml Balance 335 ml 80 ml Intake Oral 360 ml 705 ml IV Total 100 ml Output Urine Total 125 ml 625 ml # Bowel Movements 2 1 Vital Signs Date Time Temp Pulse Resp B/P Pulse Ox O2 Delivery O2 Flow Rate FiO2 02/08/17 08:14 75 02/08/17 08:00 98.2 88 18 140/77 91 02/08/17 07:46 Nasal Cannula 3.00 Humidified 02/08/17 04:28 Nasal Cannula 3.00 Humidified 02/08/17 04:28 98.7 85 20 120/67 91 02/08/17 00:30 Nasal Cannula 3.00 Humidified 02/08/17 00:30 98.1 71 20 141/69 91 02/07/17 20:48 77 02/07/17 20:10 92 Nasal Cannula 3.00 02/07/17 20:00 98.3 83 21 133/70 92 02/07/17 20:00 Nasal Cannula 3.00 Humidified 02/07/17 16:00 97.9 78 20 139/65 93 02/07/17 12:00 Nasal Cannula 3.00 Humidified 02/07/17 12:00 97.9 76 20 121/67 93 -: 02/07/17 1647 02/07/17 1647 Physical Exam General Appearance: No Acute Distress, Comfortable Eyes Eye Exam: Pupils Equal Throat Throat Exam: Oral Mucosa [place] & Moist Neck Neck Exam: Neck Supple Pulmonary Resp Exam: Breath Sounds Equal, No Distress, Rhonchi, Decreased Bases Cardiology CV Exam: Regular, Normal Sinus Rhythm Gastrointestinal/Abdomen GI Exam: Soft, Distended Musculoskeletal MS Exam: Joints Intact Extremeties Extremities Exam: Trace Edema Neurologic Neuro Exam: Alert, Awake, Oriented Psychiatric Psych Exam: Appropriate Responses Assessment/Plan Assessment Summary: Hypertension, CKD Stage IV Electrolyte Assessment: Hypocalcemia, Metabolic Acidosis Problem List: (1) Incarcerated incisional hernia (2) Acidosis (3) Metabolic acidemia (4) Hypocalcemia (5) Renal failure Plan Patient has advance renal disease. The GFR is well below 10 ml/min. He does not want HD. Abd. surgery was un eventful. Creatinine is same, acidosis improving. Now for possible D/C. I will continue to follow as out patient. He has been refusing Dialysis and knows the possible side effects , including . Problem Qualifiers (1) Renal failure: Qualified Code: N18.5 - Stage 5 chronic kidney disease not on chronic dialysis Nettie Victoria MD Feb 08, 2017 10:35
[2017-02-08 11:31] LABS: BASOPHIL % 0.2 % (0.0-2.0); EOSINOPHIL # 0.2 TH/MM3 (0-0.4); EOSINOPHIL % 2.6 % (0.0-4.0); HEMATOCRIT 25.9 % (39.0-51.0); HEMO FLAGS DIFF FINAL; LYMPH % 8.8 % (9.0-44.0); LYMPHOCYTE # 0.7 TH/MM3 (1.0-4.8); MEAN CELL VOLUME 95.4 FL (80.0-100.0); MEAN CORPUSCULAR HEMOGLOBIN 31.4 PG (27.0-34.0); MEAN CORPUSCULAR HGB CONC 32.9 % (32.0-36.0); MONO % 9.1 % (0.0-8.0); NEUT % 79.3 % (16.0-70.0); PLATELET COUNT 136 TH/MM3 (150-450); RED BLOOD COUNT 2.72 MIL/MM3 (4.50-5.90); RED CELL DISTRIBUTION WIDTH 14.8 % (11.6-17.2); WHITE BLOOD COUNT 7.6 TH/MM3 (4.0-11.0)
[2017-02-08 12:00] VITALS: BP 124/63; PULSE 77; RESP 18; TEMP 98.5; O2SAT 98
[2017-02-08] MEDS ORDERED: TAMS5CAP PO (12:24)
[2017-02-08 12:31] LABS: BICARBONATE 17.8 MEQ/L (21.0-32.0); MAGNESIUM 1.9 MG/DL (1.5-2.5)
[2017-02-08 12:52] LABS: CALCIUM-PROTEIN CORRECTED 7.6 MG/DL (8.5-10.1)
--- NOTE | 2017-02-08 14:44 | HHI.PR ---
Subjective Subjective Notes Up to chair; getting dressed to go home Daughter at bedside Objective Vitals/I&O Vital Signs Date Time Temp Pulse Resp B/P Pulse Ox O2 Delivery O2 Flow Rate FiO2 02/08/17 12:00 98.5 77 18 124/63 98 02/08/17 08:10 Nasal Cannula 3.00 Labs Laboratory Tests Test 02/07/17 02/08/17 16:47 10:54 White Blood Count 6.9 7.6 Red Blood Count 2.50 2.72 Hemoglobin 7.6 8.5 Hematocrit 24.1 25.9 Mean Corpuscular Volume 96.4 95.4 Mean Corpuscular Hemoglobin 30.4 31.4 Mean Corpuscular Hemoglobin 31.5 32.9 Concent Red Cell Distribution Width 14.5 14.8 Platelet Count 87 136 Mean Platelet Volume 9.4 10.4 Neutrophils (%) (Auto) 84.1 79.3 Lymphocytes (%) (Auto) 6.0 8.8 Monocytes (%) (Auto) 8.9 9.1 Eosinophils (%) (Auto) 0.7 2.6 Basophils (%) (Auto) 0.3 0.2 Neutrophils # (Auto) 5.8 6.0 Lymphocytes # (Auto) 0.4 0.7 Monocytes # (Auto) 0.6 0.7 Eosinophils # (Auto) 0.0 0.2 Basophils # (Auto) 0.0 0.0 CBC Comment AUTO DIFF DIFF FINAL Differential Comment AUTO DIFF CONFIRMED Platelet Estimate LOW Platelet Morphology Comment NORMAL Sodium Level 138 138 Potassium Level 4.2 4.0 Chloride Level 107 105 Carbon Dioxide Level 20.3 17.8 Anion Gap 11 15 Blood Urea Nitrogen 88 96 Creatinine 7.36 7.75 Estimat Glomerular Filtration 7 7 Rate Random Glucose 97 94 Calcium Level 7.0 7.1 Protein Corrected Calcium 7.7 7.6 Magnesium Level 1.8 1.9 Total Bilirubin 0.4 Aspartate Amino Transf 25 (AST/SGOT) Alanine Aminotransferase 24 (ALT/SGPT) Alkaline Phosphatase 56 Total Protein 5.8 6.2 Albumin 2.6 Cardiovascular: Regular Lungs: Clear Abdomen: Non-distended, Other (LLQ incision---c/d/i with stapled in place; mild rednes around incision ) Extremities: No edema A/P Assessment and Plan 86 year old male POD5 open incarcerated hernia repair with SBR -Tolerating regular diet -Antibiotics rx on chart -OOB -Nephrology following -GS clear for DC; follow up with Dr. Sprague in about 1 week Attending Statement patient seen at bedside still refuse HD pt has improved surgically d/c planning f/u 1 week Attestation The exam, history, and the medical decision-making described in the above note were completed with the assistance of the mid-level provider. I reviewed and agree with the findings presented. I attest that I had a [id number] encounter with the patient on the same day, and personally performed and documented my assessment and findings in the medical record. Keyla Hooper Feb 08, 2017 14:44 Low Sprague MD Feb 12, 2017 11:04
--- NOTE | 2017-02-08 15:42 | EKG ---
Date Performed: 02/05/2017 Time Performed: 07:00:16 PTAGE: 86 years EKG: Atrial fibrillation with rapid ventricular response, with occassional Premature ventricular contractions, or abbarently conducted Complexes. Nonspecific diffuse ST-T wave changes. Consider isc hemia. When compared to previous tracing, the above rhythm and ST Changes are new. Abnormal ECG PREVIOUS TRACING : 09/26/2012 19.43 DOCTOR: Shawn Cunningham Interpretating Date/Time 02/08/2017 15:40:27
[2017-02-08] MEDS ORDERED: TAMSULOSIN HCL 0.4 MG CAP PO SCH (21:00)
[2017-02-09] MEDS ORDERED: LEVOFLOXACIN 250 MG TAB PO SCH (13:00)
== END 2017-02-08 14:23 | disposition home health service (06) | DRG 329 ==
LOC: NEPE 13:56 → NEDA 18:32 → N03B 23:35 → N04A 02-05 17:25
PROVIDERS: ADMIT Internal Medicine; ATTEND Internal Medicine
PROC: 0WQF0ZZ Repair Abdominal Wall, Open Approach (ICD-10-PCS; 2017-02-03)
PROC: 0DB80ZZ Excision of Small Intestine, Open Approach (ICD-10-PCS; principal; 2017-02-03 19:28)
DX: K43.1 Incisional hernia with gangrene (principal); N18.6 End stage renal disease; Q25.72 Congenital pulmonary arteriovenous malformation; N17.9 Acute kidney failure, unspecified; J18.9 Pneumonia, unspecified organism; E87.0 Hyperosmolality and hypernatremia; E87.2 Acidosis; D69.6 Thrombocytopenia, unspecified; K76.6 Portal hypertension; I12.0 Hypertensive chronic kidney disease with stage 5 chronic kidney disease or end stage renal disease; C64.9 Malignant neoplasm of unspecified kidney, except renal pelvis; I48.91 Unspecified atrial fibrillation; E83.39 Other disorders of phosphorus metabolism; D64.9 Anemia, unspecified; Z95.1 Presence of aortocoronary bypass graft; Z88.0 Allergy status to penicillin; I25.10 Atherosclerotic heart disease of native coronary artery without angina pectoris; I25.2 Old myocardial infarction; K21.9 Gastro-esophageal reflux disease without esophagitis; R33.9 Retention of urine, unspecified; N28.1 Cyst of kidney, acquired; E83.51 Hypocalcemia; Z66 Do not resuscitate; J43.9 Emphysema, unspecified; I73.9 Peripheral vascular disease, unspecified; E88.09 Other disorders of plasma-protein metabolism, not elsewhere classified; E83.42 Hypomagnesemia; R74.8 Abnormal levels of other serum enzymes
CPT/HCPCS: 36600; 71010; 74000; 74176; 80048; 80053; 80061; 82805; 83605; 83690; 83735; 83880; 84100; 84155; 84443; 84484; 85025; 85610; 85730; 87641; 88305; 88307; 93005; 94150; 94620; 94640; 94664; 96361; 96374; 96375; 96376; J1170; J1644; J1956; J2270; J2370; J2405; J2710; J3475; J7030; J7040; J7050; J7070; J7613